=== PATIENT | female | born 2000 | race African-American/Black ===

== ENCOUNTER 2020-01-14 03:20 | Emergency (ER) | payer MEDICAID, SELFPAY ==
[2020-01-14 03:23] VITALS: BP 143/74; PULSE 83; RESP 18; TEMP 36.1; O2SAT 99; BMI 28.1
[2020-01-14 04:00] VITALS: PULSE 80; RESP 18; O2SAT 100
--- NOTE | 2020-01-14 04:04 | US_ITS ---
EXAMINATION: US OBSTETRICAL CLINICAL INFORMATION: Cramping. . COMPARISON: None TECHNIQUE: Real-time ultrasound was performed transabdominally and transvaginally. FINDINGS: The uterus is anteverted in position. Within the endometrial cavity is a well formed gestation sac measuring 0.93 cm in diameter. This yields a gestational age of 5 weeks 4 days. A yolk sac is present. There is no pole visualized. Both ovaries are seen. The right ovary measures 3.8 x 2.3 x 2.6 cm. The left ovary measures 3.8 x 3.3 x 3.3 cm. Dominant follicle measuring 2.4 cm noted. Other significant findings: Moderate amount of free fluid in the pelvis/right adnexa. US/US OB transvaginal IMPRESSION: Intrauterine gestational sac with yolk sac present. No pole seen, possibly secondary to the early stage of . Continued close follow-up recommended.
--- NOTE | 2020-01-14 04:04 | US_ITS ---
EXAMINATION: US OBSTETRICAL CLINICAL INFORMATION: Cramping. . COMPARISON: None TECHNIQUE: Real-time ultrasound was performed transabdominally and transvaginally. FINDINGS: The uterus is anteverted in position. Within the endometrial cavity is a well formed gestation sac measuring 0.93 cm in diameter. This yields a gestational age of 5 weeks 4 days. A yolk sac is present. There is no pole visualized. Both ovaries are seen. The right ovary measures 3.8 x 2.3 x 2.6 cm. The left ovary measures 3.8 x 3.3 x 3.3 cm. Dominant follicle measuring 2.4 cm noted. Other significant findings: Moderate amount of free fluid in the pelvis/right adnexa. US/US OB <= 14 weeks fetus IMPRESSION: Intrauterine gestational sac with yolk sac present. No pole seen, possibly secondary to the early stage of . Continued close follow-up recommended.
[2020-01-14 04:07] LABS: MANUAL DIFF FLAG NO
[2020-01-14 04:08] LABS: Basophils Percent Auto 0.4 % (0-2); Eosinophils Absolute Auto 0.1 X10*3/uL (0.0-0.4); Eosinophils Percent Auto 1.6 % (0-4); Hematocrit 37.1 % (37-47); Hemoglobin 12.3 g/dl (12.0-16.0); Imm Gran Abs Auto 0.03 X10*3/uL (0.00-0.03); Imm Gran Pct Auto 0.4 % (0.0-0.4); Lymphocytes Absolute Auto 2.9 X10*3/uL (1.2-4.9); Lymphocytes Percent Auto 35.1 % (20-40); Mean Corpuscular HGB Conc 33.2 g/dl (31.0-35.0); Mean Corpuscular Hemoglobin 29.3 pg (27.0-33.0); Mean Corpuscular Volume 88.3 fL (80-98); Mean Platelet Volume 9.7 fL (9.4-12.3); Monocytes Absolute Auto 0.8 X10*3/uL (0.1-1.2); Neutrophils Absolute Auto 4.5 X10*3/uL (2.0-8.3); Neutrophils Percent Auto 53.5 % (45-73); Platelet Count 289 X10*3/uL (160-400); Red Cell Distribution Width 12.7 % (11.0-16.0); White Blood Count 8.3 X10*3/uL (4.8-10.8)
[2020-01-14 04:09] LABS: Glucose Urine UA NEG (NEG); Leukocyte Esterase Urine NEG (NEG); Nitrite Urine NEG (NEG); Specific Gravity - Urine >= 1.030 (1.005-1.025); Urine Blood NEG (NEG); Urine Ketones NEG (NEG); Urine Protein NEG (NEG-TRACE)
[2020-01-14 04:12] LABS: Appearance Urine HAZY; Color Urine YELLOW; UACC Culture Trigger NO; UPreg QC Valid YES; Urine Pregnancy POSITIVE (NEGATIVE)
[2020-01-14 04:28] LABS: Alanine Aminotransferase 7 U/L (0-31); Albumin Level 4.3 g/dL (3.5-5.0); Alkaline Phosphatase 63 U/L (39-117); Anion Gap 11 (12-20); Aspartate Amino Transferase 13 U/L (5-31); Bilirubin Total 0.4 mg/dL (0.0-1.0); Blood Urea Nitrogen 13 mg/dL (9-16); Calcium 9.3 mg/dL (8.4-10.2); Carbon Dioxide 25 mmol/L (22-29); Chloride 104 mmol/L (96-108); Creatinine Clr Calc Pharmacy 105.2; Estimated Glomerular Filt Rate > 60; Glucose Random 75 mg/dL (60-115); Potassium 3.6 mmol/l (3.3-5.1); Sodium 136 mmol/L (135-145); Total Protein 7.4 g/dL (6.5-8.0)
[2020-01-14 04:34] LABS: HCG Quantitative 10368 mIU/mL
--- NOTE | 2020-01-14 04:52 | ED.ABDPAIN ---
HPI - Abdominal Pain General Chief Complaint: Abdominal Pain Stated Complaint: Abd cramping/? Time Seen by Provider: 01/14/20 03:32 Source: patient Mode of arrival: ambulatory Limitations: no limitations History of Present Illness HPI narrative: This is a 19-year-old female who presents with complaints of left upper quadrant cramping that she states radiates into her back but has not been associated with any urinary pain / burning /frequency, fevers, chills, nausea, vomiting, or diarrhea. In addition, patient complains cramping in the left lower pelvis / LLQ and endorses that she was diagnosed with approximately 1 month ago. She is concerned that she may be experiencing a miscarriage but denies any vaginal discharge or bleeding at this time. She does state that she has not had a bowel movement in 4 days. Related Data Allergies Allergy/AdvReac Type Severity Reaction Status Date / Time No Known Allergies Allergy Unverified 11/02/19 17:25 Review of Systems Review of Systems Pertinent positives and negatives as stated in HPI 10 point review of systems is otherwise negative. Physical Exam Vital Signs: Vital Signs: Last Vital Signs Temp 97 F 01/14/20 03:23 Pulse 80 01/14/20 04:00 Resp 18 01/14/20 04:00 BP 143/74 H 01/14/20 03:23 Pulse Ox 100 01/14/20 04:00 Body Mass Index 28.1 VITAL SIGNS: Reviewed. GENERAL: Well developed, well nourished, in no acute distress. HEAD: Normocephalic/atraumatic, EYES: PERRLA, EOMI intact without pain, no nystagmus/pallor/icterus noted EARS: Ext canals without abnormality, TMs non-bulging and non-erythematous NOSE: Nares patent bilateral OROPHARYNX: no oral lesions noted, posterior pharynx clear and non-erythematous without noted tonsillar enlargement/erythema/exudates NECK: Supple, no adenopathy LUNGS: Normal breath sounds. No adventitious sounds or accessory muscle use. SpO2<100> CARDIOVASCULAR: Regular rate and rhythm without noted murmurs, no JVD or lower extremity edema. ABDOMEN: Soft, Mild tenderness on palpation at the left lower quadrant without CVA tenderness and no rebound., non-distended with bowel sounds. No rigidity. No guarding. No palpable masses or hernias noted MUSCULOSKELETAL: No tenderness, deformities, or effusions noted on gross inspection. EXTREMITIES: No cyanosis, clubbing or edema. SKIN: Inspection of the skin reveals no rashes, ulcerations, jaundice, pallor, or petechiae. NEUROLOGIC: Alert and oriented x 4. Strength and sensation to light touch were grossly intact x 4. Course Course Course Narrative: This is a 19-year-old female with history and clinical presentation most consistent with constipation or cystitis or renal colic but will need to rule out ectopic and doubt diverticulitis. On review of all investigations there are no acute laboratory her urinalysis findings and the urine test is positive with a concomitant beta hCG of 10,368. Ob ultrasound demonstrates a gestational sac with yolk sac but no pole and current estimation is 5 weeks and 4 days without evidence to suggest ectopic but there is a noted moderate amount of free fluid in the pelvis. This was discussed with Dr Avalos who recommends follow-up ultrasound in 2 weeks. all these results and findings were discussed with the patient at bedside. MDM - Abdominal Pain Lab Data Result diagrams: 01/14/20 04:00 01/14/20 04:00 Labs: Lab Results 01/14/20 01/14/20 01/14/20 Range/Units 04:00 04:00 04:00 WBC 8.3 (4.8-10.8) X10*3/uL RBC 4.20 (4.20-5.50) X10*6/uL Hgb 12.3 (12.0-16.0) g/dl Hct 37.1 (37-47) % MCV 88.3 (80-98) fL MCH 29.3 (27.0-33.0) pg MCHC 33.2 (31.0-35.0) g/dl RDW 12.7 (11.0-16.0) % Plt Count 289 (160-400) X10*3/uL MPV 9.7 (9.4-12.3) fL Immature Gran % (Auto) 0.4 (0.0-0.4) % Neut % (Auto) 53.5 (45-73) % Lymph % (Auto) 35.1 (20-40) % Winkler % (Auto) 9.0 (2-11) % Eos % (Auto) 1.6 (0-4) % Baso % (Auto) 0.4 (0-2) % Lymph # (Auto) 2.9 (1.2-4.9) X10*3/uL Winkler # (Auto) 0.8 (0.1-1.2) X10*3/uL Eos # (Auto) 0.1 (0.0-0.4) X10*3/uL Baso # (Auto) 0.0 (0.0-0.2) X10*3/uL Abs Immat Gran (auto) 0.03 (0.00-0.03) X10*3/uL Absolute Neuts (auto) 4.5 (2.0-8.3) X10*3/uL Absolute Nucleated RBC 0.000 (0.0-0.012) X10*3/uL Nucleated RBC % (auto) 0.0 (0.0-0.2) /100WBC Sodium 136 (135-145) mmol/L Potassium 3.6 (3.3-5.1) mmol/l Chloride 104 (96-108) mmol/L Carbon Dioxide 25 (22-29) mmol/L Anion Gap 11 L (12-20) BUN 13 (9-16) mg/dL Creatinine 0.75 (0.5-1.4) mg/dL Estim Creat Clear Calc 105.2 Estimated GFR > 60 Random Glucose 75 (60-115) mg/dL Calcium 9.3 (8.4-10.2) mg/dL Total Bilirubin 0.4 (0.0-1.0) mg/dL AST 13 (5-31) U/L ALT 7 (0-31) U/L Alkaline Phosphatase 63 (39-117) U/L Total Protein 7.4 (6.5-8.0) g/dL Albumin 4.3 (3.5-5.0) g/dL Beta HCG, Quant 18789 mIU/mL Urine Color YELLOW Urine Appearance HAZY Urine pH 6.0 (5.0-8.0) Ur Specific Tropic >= 1.030 H (1.005-1.025) Urine Protein NEG (NEG-TRACE) MG/DL Urine Glucose (UA) NEG (NEG) MG/DL Urine Ketones NEG (NEG) MG/DL Urine Blood NEG (NEG) Urine Nitrite NEG (NEG) Ur Leukocyte Esterase NEG (NEG) Urine Test POSITIVE H (NEGATIVE) Discharge Plan Discharge Clinical Impression: Free fluid in pelvis Qualifiers: Weeks of gestation: less than 8 weeks Qualified Code(s): Z3A.01 - Less than 8 weeks gestation of Patient Disposition: Home, Self-Care Instructions: First Trimester (ED) Additional Instructions: 1. Tylenol 1000 mg, orally, every 6 hours as needed for pain control. Do not exceed 4000 mg within 24 hours. 2. Increase fluid hydration especially with water and continue with your vitamins. 3. On the ultrasound today you were noted to have a moderate amount of free fluid in the pelvis and you should have a repeat ultrasound in 2 weeks. 4. Ayll-tyg-lgrvctk MiraLax as directed on the outside packaging to assist in regular bowel movements and avoidance of constipation. The patient and/or family acknowledge understanding of results (as applicable), diagnosis, treatment plan, need for follow up, and symptoms that should prompt a return to the emergency room. Referrals: Estephania Balderas, REGULATORY AFFAIRS STRATEGY SPECIALIST [Primary Care Provider] - 2 days ( For re-evaluation in 2 weeks of pelvic free fluid as well as confirmation of pole development) [facility] Past Medical History Source: nursing notes reviewed Medical History Asthma Social History Social History Alcohol intake: never Smoking Status: Unknown if ever smoked Use of substances other than those prescribed or required for medical reasons: Refusing to respond Advance Directives: No Advance Directives Information Provided: No
== END 2020-01-14 06:43 | disposition home or self-care (01) ==
PROVIDERS: Emergency Provider Student in an Organized Health Care Education/Training Program; PCP Nurse Practitioner Primary Care
DX: O26.91 Pregnancy related conditions, unspecified, first trimester (principal); R10.12 Left upper quadrant pain; Z3A.01 Less than 8 weeks gestation of pregnancy
CPT/HCPCS: 36415; 76801; 76817; 80053; 81003; 81025; 84702; 85025; 99284

== ENCOUNTER 2020-01-23 09:04 | Outpatient (REF) | payer MEDICAID, SELFPAY ==
[2020-01-24 14:17] LABS: BV Int Neg Control Negative (Negative); BV Int Pos Control Positive (Positive)
[2020-01-27 04:57] LABS: CT PCR NOT DETECTED (Not Detect.); NG PCR NOT DETECTED (Not Detect.)
== END 2020-01-23 09:05 | disposition home or self-care (01) ==
LOC: HO.LAB 09:04
PROVIDERS: PCP Nurse Practitioner Primary Care; Visit Provider Advanced Practice Midwife
DX: R10.2 Pelvic and perineal pain (principal); K59.00 Constipation, unspecified; Z34.90 Encounter for supervision of normal pregnancy, unspecified, unspecified trimester
CPT/HCPCS: 87480; 87491; 87510; 87591; 87660; 99202

== ENCOUNTER 2020-01-23 10:37 | Outpatient (REF) | payer MEDICAID, SELFPAY ==
--- NOTE | 2020-01-23 10:41 | US_ITS ---
EXAMINATION: FIRST TRIMESTER OB ULTRASOUND CLINICAL INFORMATION: Abdominal cramping COMPARISON: Previous exam 01/14/2020 TECHNIQUE: Transabdominal first trimester OB ultrasound FINDINGS: The uterus is normal in size and shape. There is an intrauterine gestational sac. Lynd-rump length measures 0.64 cm suggesting gestational age of 6 weeks 4 days with estimated date of delivery of 09/13/2020. heart rate is 122 bpm. There is a yolk sac. The right maternal ovary is not seen. The left maternal ovary is slightly enlarged and measures 5 x 3.6 x 3.2 cm. There is a 2.5 x 1.7 x 2.6 cm left ovarian cyst. There is no fluid in the pelvis. US/US OB <= 14 weeks fetus IMPRESSION: Single viable intrauterine . From today's measurements, gestational age is estimated at 6 weeks 4 days with estimated date of delivery of 09/13/2020. Slightly enlarged left ovary and 2.5 x 1.7 x 2.6 cm left ovarian cyst.
== END 2020-01-23 10:38 | disposition home or self-care (01) ==
LOC: HO.US 10:37
PROVIDERS: Visit Provider Advanced Practice Midwife
DX: R10.2 Pelvic and perineal pain (principal); Z34.90 Encounter for supervision of normal pregnancy, unspecified, unspecified trimester
CPT/HCPCS: 76801

== ENCOUNTER 2020-01-30 13:49 | Outpatient (REF) | payer MEDICAID, SELFPAY ==
--- NOTE | 2020-01-30 13:55 | US_ITS ---
EXAMINATION: US DIAGNOSTIC ULTRASOUND BREAST, LEFT CLINICAL INFORMATION: 19-year-old with outside area of palpable concern upper outer left breast. First trimester . Family history breast cancer in grandmother. No prior breast imaging. COMPARISON: None. TECHNIQUE: Ultrasound left breast is targeted to the area of clinical concern. Patient is able to point to the area of concern at time of imaging. Grayscale imaging and color Doppler are performed without and with harmonics. FINDINGS: There is no focal suspicious finding. There is no cystic or solid mass, architectural abnormality, duct ectasia, or edema in the soft tissue planes. Results are discussed with the patient at time of visit. US/US breast LT limited IMPRESSION: Unremarkable exam. No ultrasound correlate for patient's clinical concern. ASSESSMENT: BI-RADS 1: Negative RECOMMENDATION: Patient should be managed based on the clinical impression. If clinically indicated, further evaluation may be considered with surgical consult. Decision to proceed with biopsy should be based on clinical grounds and degree of clinical concern.
== END 2020-01-30 13:50 | disposition home or self-care (01) ==
LOC: HO.MAMMO 13:49
PROVIDERS: PCP Nurse Practitioner Primary Care; Visit Provider Nurse Practitioner Primary Care
DX: N63.21 Unspecified lump in the left breast, upper outer quadrant (principal); N64.4 Mastodynia
CPT/HCPCS: 76642

== ENCOUNTER → 2020-02-12 14:12 | Outpatient (BNVA) | payer MEDICAID, SELFPAY | PROVIDERS: PCP Nurse Practitioner Primary Care; Visit Provider Advanced Practice Midwife | DX: O09.291 Supervision of pregnancy with other poor reproductive or obstetric history, first trimester (principal); Z3A.09 9 weeks gestation of pregnancy | CPT/HCPCS: 99212 ==

== ENCOUNTER 2020-02-14 11:43 | Outpatient (REF) | payer MEDICAID, SELFPAY ==
--- NOTE | 2020-02-14 11:48 | US_ITS ---
EXAMINATION: ULTRASOUND OB LESS THAN 14 WEEKS limited. CLINICAL INFORMATION: Follow-up , LMP 12/09/2019. COMPARISON: 11/23/2019. TECHNIQUE: Multiple limited 2-D grayscale and color Doppler ultrasound images of the pelvis were obtained. FINDINGS: A single intrauterine gestation is seen with an average gestational sac is seen. The yolk sac is unremarkable. A pole shows good motion and heart rate. A heart rate is seen measuring 172 beats per minute. 2 small areas of subchorionic hemorrhage are seen measuring 2.2 cm anteriorly and 2.1 cm posteriorly. The cervix is closed unremarkable. There is no free fluid in the cul-de-sac. No adnexal abnormality is identified. The left ovary measures 3.9 x 1.9 x 3.6 . The right ovary measures 3.2 x 2.8 x 2.5 cm. US/US OB <= 14 weeks fetus Impression: IMPRESSION: 1. Single viable intrauterine gestation as detailed above. 2. 2 small areas of subchorionic hemorrhage were not seen previously. These can be monitored for change as clinically indicated.
== END 2020-02-14 11:44 | disposition home or self-care (01) ==
LOC: HO.HMGCX 11:43
PROVIDERS: PCP Nurse Practitioner Primary Care; Visit Provider Advanced Practice Midwife
DX: O26.891 Other specified pregnancy related conditions, first trimester (principal); N93.9 Abnormal uterine and vaginal bleeding, unspecified
CPT/HCPCS: 76801

== ENCOUNTER 2020-03-01 12:15 | Outpatient (REF) | payer MEDICAID, SELFPAY ==
--- NOTE | 2020-03-01 12:26 | US_ITS ---
EXAMINATION: OBSTETRICAL ULTRASOUND, FIRST TRIMESTER HISTORY: 19-year-old at the 11.6 weeks of gestation NT screening COMPARISON: 02/14/2020 TECHNIQUE: Real time transabdominal imaging with color and M-mode Doppler. FINDINGS: A single, live IUP CRL of 62.3 mm c/w 12.5wks is noted. Heart Rate: 156 beats per minute. Normal yolk sac seen. NT was 1.3.mm. NB Present The embryo appears sonographically wnl for this GA. Left ovary is within normal limits. Right ovary was not visible. GESTATIONAL AGE: 1. Established GA: 11.6 wks 2. GA from [facility]: 12.5 wks ESTIMATED DATE OF DELIVERY: 1. Established NIKITA: 09/13/2020 2. NIKITA from [facility]: 09/08/2020 US/US OB 1T nuc measure IMPRESSION: 1. A single live IUP 2. Size equals dates 3. NT of 1.3 mm MFM Consultation: I reviewed the ultrasound findings along with significance of NT measurement. The NT of less than 3mm is generally reassuring. However, the sensitivity for T21 detection is only 60%. I reviewed the availability of serum aneuploidy screening which includes cell-free DNA and placental protein based tests. I discussed the sensitivity, false-positive rate, and other limitations associated with each test. I also reviewed the availability of invasive diagnostic tests that are associated small but definite risk of miscarriage. We also reviewed the differences between screening tests and diagnostic tests. After our discussion, she opted for the First trimester screening that is based on cell-free DNA or non-invasive testing (NIPT). The result will be faxed to your office in approximately 7 days. A follow up at 18 weeks for survey has been scheduled. Thank you very much for this referral. Majority of this visit was spent reviewing her care and counselling her in face to face time: Time spent 20 min. (3,10,7)
[2020-03-01 15:01] LABS: MANUAL DIFF FLAG NO
[2020-03-01 15:16] LABS: Basophils Percent Auto 0.1 % (0-2); Eosinophils Absolute Auto 0.1 X10*3/uL (0.0-0.4); Eosinophils Percent Auto 0.9 % (0-4); Hemoglobin 11.9 g/dl (12.0-16.0); Imm Gran Abs Auto 0.03 X10*3/uL (0.00-0.03); Imm Gran Pct Auto 0.4 % (0.0-0.4); Lymphocytes Absolute Auto 1.2 X10*3/uL (1.2-4.9); Lymphocytes Percent Auto 18.2 % (20-40); Mean Corpuscular HGB Conc 33.1 g/dl (31.0-35.0); Mean Corpuscular Hemoglobin 29.3 pg (27.0-33.0); Mean Corpuscular Volume 88.7 fL (80-98); Mean Platelet Volume 10.1 fL (9.4-12.3); Monocytes Absolute Auto 0.5 X10*3/uL (0.1-1.2); Monocytes Percent Auto 6.6 % (2-11); Neutrophils Percent Auto 73.8 % (45-73); Platelet Count 264 X10*3/uL (160-400); Red Blood Count 4.06 X10*6/uL (4.20-5.50); Red Cell Distribution Width 12.3 % (11.0-16.0); White Blood Count 6.8 X10*3/uL (4.8-10.8)
[2020-03-01 15:26] LABS: Amphetamine Screen Urine Not Detected (Not Detect); Barbiturates, Urine Not Detected (Not Detect); Benzodiazepines Screen Urine Not Detected (Not Detect); Cannabinoid Screen Urine Not Detected (Not Detect); Cocaine Screen Urine Not Detected (Not Detect); Opiate Screen Urine Not Detected (Not Detect); Phencyclidine Screen Urine Not Detected (Not Detect)
[2020-03-01 16:00] LABS: Syphilis Screen Nonreactive (Nonreactive)
[2020-03-03 02:33] LABS: Rubella IgG Antibody 2.37 Index; Varicella IgG Antibody <135.00 index
[2020-03-04 08:20] LABS: HBsAGNum1 0.45 S/CO (0.00-0.99); HIV AB/AG Nonreactive (Nonreactive); HIV Num 1 0.06 S/CO (0.00-0.99); Hepatitis B Surface Antigen Negative (Negative)
[2020-03-04 09:05] LABS: ~HepC Num1 0.08 S/CO (0.00-0.79); ~Hepatitis C Antibody Nonreactive (Nonreactive)
== END 2020-03-01 12:16 | disposition home or self-care (01) ==
LOC: HO.US 12:15
PROVIDERS: Absent Provider Advanced Practice Midwife; PCP Nurse Practitioner Primary Care; Visit Provider Advanced Practice Midwife
DX: O26.891 Other specified pregnancy related conditions, first trimester (principal); Z36.82 Encounter for antenatal screening for nuchal translucency; Z3A.11 11 weeks gestation of pregnancy
CPT/HCPCS: 76813; 80307; 84702; 85025; 86762; 86780; 86787; 86803; 86850; 86900; 86901; 87086; 87340; 87389

== ENCOUNTER 2020-03-08 07:32 | Emergency (ER) | payer MEDICAID, SELFPAY ==
[2020-03-08 07:59] VITALS: BP 116/71; PULSE 74; RESP 16; TEMP 37.1; O2SAT 99; BMI 29.6
[2020-03-08 08:11] VITALS: BP 116/71; PULSE 74; RESP 16; TEMP 37.1; O2SAT 99
--- NOTE | 2020-03-08 08:11 | ECG_ITS ---
Test Reason : SYNCOPE Blood Pressure : / mmHG Vent. Rate : 061 BPM Atrial Rate : 061 BPM P-R Int : 164 ms QRS Dur : 072 ms QT Int : 384 ms P-R-T Axes : 032 051 031 degrees QTc Int : 386 ms Normal sinus rhythm Normal ECG When compared with ECG of 28-NOV-2017 13:36, No significant change was found Referred By: Esteban Acosta Electronically Signed By:Rj Reynolds
--- NOTE | 2020-03-08 08:25 | ED_ITS ---
HPI - Syncope General Chief Complaint: Dizziness Stated Complaint: PASSED OUT YESTERDAY - PREG Time Seen by Provider: 03/08/20 08:02 Source: patient Mode of arrival: ambulatory History of Present Illness HPI narrative: 19 yo F with a past medical history of asthma, at 12 weeks gestation presenting to the ED c/o chest tightness x1 week, migraine headache x few days, and multiple syncopal episodes yesterday while on computer. States was sitting at computer and felt herself going out and coming back in without falling to ground or losing postural tone. Denies head trauma. Admits to assoc SOB. Admits to nausea/vomiting since . Reports headache is similar to prior migraines, not maximal onset, waxes and wanes, and has not taken Tylenol in a few days. Denies fever, chills, cough, visual changes, abdominal pain, diarrhea, vaginal bleeding or discharge. Related Data Home Medications Medication Instructions Recorded Confirmed prenat.vits,connie,[id number] 1 tab PO BEDTIME 01/23/20 02/12/20 Previous Rx's Medication Instructions Recorded miconazole nitrate 2 % vaginal 1 appful VAGINAL BEDTIME 7 Days 01/26/20 cream #45 g Allergies Allergy/AdvReac Type Severity Reaction Status Date / Time No Known Allergies Allergy Unverified 02/12/20 14:18 Review of Systems Review of Systems: Constitutional: No Weight loss, No Fever, No Chills ENT/Mouth: No Hoarseness, No sore throat, No Swallowing Difficulty Eyes: No Eye Pain, No Vision Changes Cardiovascular: + Chest Pain, +SOB, No Dyspnea on Exertion, No Palpitations Respiratory: No Cough, No Sputum, No Dyspnea Gastrointestinal: + Nausea, + Vomiting, No Diarrhea, No Constipation, No Abdominal pain Genitourinary: No irregular bleeding, No Dysuria, No Urinary Frequency, No Hematuria Musculoskeletal: No joint pain, No Myalgias, No Joint Swelling Skin: No Skin Lesions, No rash Neuro: No Weakness, No Numbness, No Paresthesias, + Loss of Consciousness, +lightheadedness, + Headache Yes all other systems are reviewed and are negative Neurologic: Denies Abnormal speech present PMFSH Past Medical History Attestation statement: The following information was validated with the patient. Source: old records reviewed and nursing notes reviewed Medical History Asthma Family History Family History (Updated 02/12/20 @ 14:23 by Ananya Elena RN) Father No problems noted. Mother History of brain tumor Hx of acute arthritis Maternal Grandmother History of asthma Hx of acute arthritis Hx of diabetes mellitus Hx of kidney disease Maternal Grandfather No problems noted. Paternal Grandfather No problems noted. Paternal Grandmother Hx of breast cancer Social History Social History (Updated 02/12/20 @ 14:25 by Ananya Elena, RN) Household Members: Significant Other Alcohol intake: never Smoking Status: Never smoker Smoked in Last 30 Days: No Use of substances other than those prescribed or required for medical reasons: No Advance Directives: No Advance Directives Information Provided: No service: No Current occupational status: employed Current occupation: Works at school Current occupational exposures/hazards: No Physical Exam Vital Signs: Vital Signs: Last Vital Signs Temp 98.7 F 03/08/20 08:11 Pulse 76 03/08/20 09:16 Resp 16 03/08/20 08:11 BP 125/68 03/08/20 09:16 Pulse Ox 99 03/08/20 08:11 Body Mass Index 29.6 Const: General: cooperative, healthy appearing, comfortable and no acute distress Orientation/consciousness: patient oriented x3 Limitations: no limitations HENMT: Head: Yes normal to inspection Ears: hearing grossly normal bilaterally General nose exam: Normal external nose present Face and sinus: Yes normal facial exam Throat: Yes posterior oropharynx normal and Yes uvula midline Eyes: General: appearance normal, both eyes and all related structures Pupils: Equal, round and reactive pupils present EOM: EOMs intact bilaterally Neck: Neck: Yes normal visual inspection and Yes no meningeal signs Resp: Effort & Inspection: normal respiratory effort Auscultation: clear to auscultation bilaterally, no rales, no rhonchi and no wheezes Cardio: Rate: regular rate Heart sounds: S1 normal heart sound present and S2 normal heart sound present GI: Inspection: Yes normal to inspection Palpation (GI): Soft to palpation, nontender, no guarding and not rigid Skin: Rashes: no rashes Wounds: no wounds Neuro: General: patient oriented x3, tone normal, moves all extremities, no meningeal signs, no focal motor deficits and CN's II-XI intact bilaterally Cranial nerves: Yes Equal, round and reactive pupils present Cognition (Neuro): normal cognition Speech: No Abnormal speech present Gait exam (Neuro): Normal gait present Motor exam (neuro): 5/5 motor strength present throughout and Pronator motor function not present Coordination: [id number] test normal Extrem: General: Yes normal to inspection Course Course Course Narrative: * H&H at baseline, no leukocytosis, D-dimer negative negative, labs otherwise unremarkable. Beta quant 123,905 * CXR unremarkable, orthostatic vital signs negative * UA and drug screen negative. Patient reports symptomatic improvement in the ED. Results discussed with patient including worrisome signs and symptoms and strict return precautions. Patient is to have close follow-up with her OBGYN. She verbalized understanding of feel safe for discharge home MDM - Syncope MDM Narrative Medical decision making narrative: 19 yo F with a past medical history of asthma, at 12 weeks gestation presenting to the ED c/o chest tightness x1 week, migraine headache x few days, and multiple syncopal episodes yesterday while on computer. On exam VSS, NAD/nontoxic appearing, no focal neuro deficit s, lungs CTA, abdomen soft/nontender. Concern for complicated migraine headache vs ACS or PE vs dehydration. Lower concern for pneumonia, CVT, meningitis/encephalitis. Plan: EKG, labs, UA, orthostatics, IVF, re-evaluate Medical Records Attestation: I reviewed the patient's medical records. Lab Data Attestation: I reviewed the patient's lab results. Result diagrams: 03/08/20 08:37 03/08/20 08:37 Labs: Lab Results 03/08/20 03/08/20 03/08/20 Range/Units 08:37 08:37 08:37 WBC 6.8 (4.8-10.8) X10*3/uL RBC 3.86 L (4.20-5.50) X10*6/uL Hgb 11.6 L (12.0-16.0) g/dl Hct 34.2 L (37-47) % MCV 88.6 (80-98) fL MCH 30.1 (27.0-33.0) pg MCHC 33.9 (31.0-35.0) g/dl RDW 12.6 (11.0-16.0) % Plt Count 240 (160-400) X10*3/uL MPV 9.7 (9.4-12.3) fL Immature Gran % (Auto) 0.4 (0.0-0.4) % Neut % (Auto) 65.8 (45-73) % Lymph % (Auto) 25.8 (20-40) % [place] % (Auto) 6.9 (2-11) % Eos % (Auto) 1.0 (0-4) % Baso % (Auto) 0.1 (0-2) % Lymph # (Auto) 1.8 (1.2-4.9) X10*3/uL [place] # (Auto) 0.5 (0.1-1.2) X10*3/uL Eos # (Auto) 0.1 (0.0-0.4) X10*3/uL Baso # (Auto) 0.0 (0.0-0.2) X10*3/uL Abs Immat Gran (auto) 0.03 (0.00-0.03) X10*3/uL Absolute Neuts (auto) 4.5 (2.0-8.3) X10*3/uL Absolute Nucleated RBC 0.000 (0.0-0.012) X10*3/uL Nucleated RBC % (auto) 0.0 (0.0-0.2) /100WBC PT 12.7 (10.8-13.0) SEC INR 1.1 (0.9-1.1) APTT 33.0 (24.1-38.0) SEC D-Dimer < 200 NG/ML Sodium 134 L (135-145) mmol/L Potassium 3.7 (3.3-5.1) mmol/l Chloride 104 (96-108) mmol/L Carbon Dioxide 23 (22-29) mmol/L Anion Gap 11 L (12-20) BUN 10 (9-16) mg/dL Creatinine 0.62 (0.5-1.4) mg/dL Estim Creat Clear Calc 130.6 Estimated GFR > 60 Random Glucose 70 (60-115) mg/dL Calcium 9.0 (8.4-10.2) mg/dL Magnesium 1.8 (1.6-2.6) mg/dL Total Bilirubin 0.2 (0.0-1.0) mg/dL Direct Bilirubin < 0.2 (0.0-0.5) mg/dL AST 12 (5-31) U/L ALT 6 (0-31) U/L Alkaline Phosphatase 48 D (39-117) U/L Troponin I High Sens (<3.5-17.0) ng/L B-Natriuretic Peptide (<100) pg/mL Total Protein 6.7 (6.5-8.0) g/dL Albumin 3.9 (3.5-5.0) g/dL Beta HCG, Quant 513990 mIU/mL Urine Color Urine Appearance Urine pH (5.0-8.0) Ur Specific [place] (1.005-1.025) Urine Protein (NEG-TRACE) MG/DL Urine Glucose (UA) (NEG) MG/DL Urine Ketones (NEG) MG/DL Urine Blood (NEG) Urine Nitrite (NEG) Ur Leukocyte Esterase (NEG) Urine Opiates Screen (Not Detect) Ur Barbiturates Screen (Not Detect) Ur Phencyclidine Scrn (Not Detect) Ur Amphetamines Screen (Not Detect) U Benzodiazepines Scrn (Not Detect) Urine Cocaine Screen (Not Detect) U Marijuana (THC) Screen (Not Detect) 03/08/20 03/08/20 03/08/20 Range/Units 08:37 10:05 10:05 WBC (4.8-10.8) X10*3/uL RBC (4.20-5.50) X10*6/uL Hgb (12.0-16.0) g/dl Hct (37-47) % MCV (80-98) fL MCH (27.0-33.0) pg MCHC (31.0-35.0) g/dl RDW (11.0-16.0) % Plt Count (160-400) X10*3/uL MPV (9.4-12.3) fL Immature Gran % (Auto) (0.0-0.4) % Neut % (Auto) (45-73) % Lymph % (Auto) (20-40) % [place] % (Auto) (2-11) % Eos % (Auto) (0-4) % Baso % (Auto) (0-2) % Lymph # (Auto) (1.2-4.9) X10*3/uL [place] # (Auto) (0.1-1.2) X10*3/uL Eos # (Auto) (0.0-0.4) X10*3/uL Baso # (Auto) (0.0-0.2) X10*3/uL Abs Immat Gran (auto) (0.00-0.03) X10*3/uL Absolute Neuts (auto) (2.0-8.3) X10*3/uL Absolute Nucleated RBC (0.0-0.012) X10*3/uL Nucleated RBC % (auto) (0.0-0.2) /100WBC PT (10.8-13.0) SEC INR (0.9-1.1) APTT (24.1-38.0) SEC D-Dimer NG/ML Sodium (135-145) mmol/L Potassium (3.3-5.1) mmol/l Chloride (96-108) mmol/L Carbon Dioxide (22-29) mmol/L Anion Gap (12-20) BUN (9-16) mg/dL Creatinine (0.5-1.4) mg/dL Estim Creat Clear Calc Estimated GFR Random Glucose (60-115) mg/dL Calcium (8.4-10.2) mg/dL Magnesium (1.6-2.6) mg/dL Total Bilirubin (0.0-1.0) mg/dL Direct Bilirubin (0.0-0.5) mg/dL AST (5-31) U/L ALT (0-31) U/L Alkaline Phosphatase (39-117) U/L Troponin I High Sens < 3.5 (<3.5-17.0) ng/L B-Natriuretic Peptide < 10 (<100) pg/mL Total Protein (6.5-8.0) g/dL Albumin (3.5-5.0) g/dL Beta HCG, Quant mIU/mL Urine Color YELLOW Urine Appearance HAZY Urine pH 6.0 (5.0-8.0) Ur Specific [place] >= 1.030 H (1.005-1.025) Urine Protein NEG (NEG-TRACE) MG/DL Urine Glucose (UA) NEG (NEG) MG/DL Urine Ketones 5 (NEG) MG/DL Urine Blood NEG (NEG) Urine Nitrite NEG (NEG) Ur Leukocyte Esterase NEG (NEG) Urine Opiates Screen Not Detected (Not Detect) Ur Barbiturates Screen Not Detected (Not Detect) Ur Phencyclidine Scrn Not Detected (Not Detect) Ur Amphetamines Screen Not Detected (Not Detect) U Benzodiazepines Scrn Not Detected (Not Detect) Urine Cocaine Screen Not Detected (Not Detect) U Marijuana (THC) Screen Not Detected (Not Detect) ECG Data Attestation: I personally reviewed and interpreted this ECG as follows: ECG interpretation date: 03/08/20 Interpretation: EKG normal sinus rhythm with a rate of 61. No ischemic changes. No STEMI Discharge Plan Discharge Clinical Impression: Chest tightness Syncope Qualifiers: Syncope type: unspecified Qualified Code(s): R55 - Syncope and collapse Patient Disposition: Home, Self-Care Instructions: Chest Pain (ED) Additional Instructions: Your blood work and chest x-ray were reassuring today in the emergency department Make sure your staying hydrated. Call your OBGYN for close follow-up If her symptoms persist or worsen, he develop constant worsening chest pain, shortness of breath, abdominal pain, vaginal bleeding or discharge, or pass out again return to the ED immediately Prescriptions: No Action miconazole nitrate [Monistat 7] 2 % cream 1 appful vaginal BEDTIME 7 Days Qty: 45 RF: 0 prenat.vits,connie,[id number] Tablet 1 tab PO BEDTIME RF: 0 Referrals: Eb Avalos MD [Physician] - 2 days
--- NOTE | 2020-03-08 08:39 | XR_ITS ---
EXAMINATION: XR CHEST CLINICAL INFORMATION: Chest pain. COMPARISON: 06/23/2012 portable chest. TECHNIQUE: Frontal view of the chest was obtained. FINDINGS: No significant abnormality is noted involving the heart, lungs, mediastinum, bony thorax or soft tissues. XR/XR chest 1V IMPRESSION: No acute cardiopulmonary process.
[2020-03-08 08:42] LABS: MANUAL DIFF FLAG NO
[2020-03-08 08:45] LABS: Basophils Percent Auto 0.1 % (0-2); Eosinophils Absolute Auto 0.1 X10*3/uL (0.0-0.4); Hematocrit 34.2 % (37-47); Hemoglobin 11.6 g/dl (12.0-16.0); Imm Gran Abs Auto 0.03 X10*3/uL (0.00-0.03); Imm Gran Pct Auto 0.4 % (0.0-0.4); Lymphocytes Absolute Auto 1.8 X10*3/uL (1.2-4.9); Lymphocytes Percent Auto 25.8 % (20-40); Mean Corpuscular HGB Conc 33.9 g/dl (31.0-35.0); Mean Corpuscular Hemoglobin 30.1 pg (27.0-33.0); Mean Corpuscular Volume 88.6 fL (80-98); Mean Platelet Volume 9.7 fL (9.4-12.3); Monocytes Absolute Auto 0.5 X10*3/uL (0.1-1.2); Monocytes Percent Auto 6.9 % (2-11); Neutrophils Absolute Auto 4.5 X10*3/uL (2.0-8.3); Neutrophils Percent Auto 65.8 % (45-73); Platelet Count 240 X10*3/uL (160-400); Red Blood Count 3.86 X10*6/uL (4.20-5.50); Red Cell Distribution Width 12.6 % (11.0-16.0); White Blood Count 6.8 X10*3/uL (4.8-10.8)
[2020-03-08 08:50] LABS: INTERNATIONAL NORM RATIO 1.1 (0.9-1.1); Prothrombin Time 12.7 SEC (10.8-13.0)
[2020-03-08] MEDS: 0.9 % Sodium Chloride 1,000 ML 999 ML IVCONT (08:54)
[2020-03-08 08:59] LABS: D Dimer < 200 NG/ML
[2020-03-08 09:08] LABS: Alanine Aminotransferase 6 U/L (0-31); Albumin Level 3.9 g/dL (3.5-5.0); Alkaline Phosphatase 48 U/L (39-117); Anion Gap 11 (12-20); Aspartate Amino Transferase 12 U/L (5-31); Bilirubin Direct < 0.2 mg/dL (0.0-0.5); Bilirubin Total 0.2 mg/dL (0.0-1.0); Blood Urea Nitrogen 10 mg/dL (9-16); Carbon Dioxide 23 mmol/L (22-29); Chloride 104 mmol/L (96-108); Creatinine Clr Calc Pharmacy 130.6; Estimated Glomerular Filt Rate > 60; Glucose Random 70 mg/dL (60-115); Magnesium 1.8 mg/dL (1.6-2.6); Potassium 3.7 mmol/l (3.3-5.1); Sodium 134 mmol/L (135-145); Total Protein 6.7 g/dL (6.5-8.0)
[2020-03-08] MEDS: Acetaminophen 325 MG TABLET 650 MG PO (09:08)
[2020-03-08 09:14] VITALS: BP 112/59; PULSE 66
[2020-03-08 09:15] VITALS: BP 115/76; PULSE 72
[2020-03-08 09:15] LABS: B Type Natriuretic Peptide < 10 pg/mL (<100); Troponin-I High Sensitivity < 3.5 ng/L (<3.5-17.0)
[2020-03-08 09:16] VITALS: BP 125/68; PULSE 76
--- NOTE | 2020-03-08 09:21 | PC.NURSE ---
pt states she had a syncopal episode yesterday. No signs or SX of stoke. She is alert, oriented. Tongue midline. speech clear. Pt has no limb drift or ataxia. Gait is steady. Swallow screen completed, pt has no stroke SX.
[2020-03-08 10:15] LABS: Appearance Urine HAZY; Color Urine YELLOW; Glucose Urine UA NEG (NEG); Leukocyte Esterase Urine NEG (NEG); Nitrite Urine NEG (NEG); Specific Gravity - Urine >= 1.030 (1.005-1.025); Urine Blood NEG (NEG); Urine Ketones 5 MG/DL (NEG); Urine Protein NEG (NEG-TRACE)
[2020-03-08 10:36] LABS: Amphetamine Screen Urine Not Detected (Not Detect); Barbiturates, Urine Not Detected (Not Detect); Benzodiazepines Screen Urine Not Detected (Not Detect); Cannabinoid Screen Urine Not Detected (Not Detect); Cocaine Screen Urine Not Detected (Not Detect); Opiate Screen Urine Not Detected (Not Detect); Phencyclidine Screen Urine Not Detected (Not Detect)
[2020-03-08 11:10] VITALS: BP 108/60; PULSE 70; RESP 15; TEMP 37.1; O2SAT 99
== END 2020-03-08 11:23 | disposition home or self-care (01) ==
PROVIDERS: Physician Assistant; Emergency Provider Internal Medicine; PCP Nurse Practitioner Primary Care
DX: O26.891 Other specified pregnancy related conditions, first trimester (principal); R07.9 Chest pain, unspecified; R55 Syncope and collapse; Z3A.12 12 weeks gestation of pregnancy
CPT/HCPCS: 36415; 71045; 80048; 80076; 80307; 81003; 83735; 83880; 84484; 84702; 85025; 85379; 85610; 85730; 93005; 96360; 99284; 99285

== ENCOUNTER 2020-03-11 14:44 | Outpatient (REF) | payer MEDICAID, SELFPAY ==
[2020-03-12 08:53] LABS: BV Int Neg Control Negative (Negative); BV Int Pos Control Positive (Positive)
[2020-03-13 19:02] LABS: C. trachomatis RNA TMA NOT DETECTED (NOT DETECTED); N. gonorrhoeae RNA TMA NOT DETECTED (NOT DETECTED)
== END 2020-03-11 14:45 | disposition home or self-care (01) ==
LOC: HO.LAB 14:44
PROVIDERS: PCP Nurse Practitioner Primary Care; Visit Provider Advanced Practice Midwife
DX: O26.91 Pregnancy related conditions, unspecified, first trimester (principal); N89.8 Other specified noninflammatory disorders of vagina; Z3A.00 Weeks of gestation of pregnancy not specified
CPT/HCPCS: 36415; 81003; 87480; 87491; 87510; 87591; 87660; 99212

== ENCOUNTER → 2020-03-15 08:29 | Outpatient (BNVA) | payer MEDICAID, SELFPAY | PROVIDERS: PCP Nurse Practitioner Primary Care; Visit Provider Advanced Practice Midwife | DX: Z34.90 Encounter for supervision of normal pregnancy, unspecified, unspecified trimester (principal) | CPT/HCPCS: 81003; 99212 ==

== ENCOUNTER 2020-03-28 13:51 | Emergency (ER) | payer MEDICAID, SELFPAY ==
--- NOTE | ~2020-03-28 | US_ITS ---
EXAMINATION: US VENOUS ULTRASOUND WITH DOPPLER LOWER EXTREMITY, BILATERAL CLINICAL INFORMATION: Elevated d-dimer, shortness of breath and chest pain. patient. COMPARISON: None TECHNIQUE: Ultrasound of the deep veins is performed from the hip to the calf with compression sonography and color and pulse Doppler assessment. Spectral analysis with color-flow imaging is performed. FINDINGS: RIGHT: There is normal venous compression and respiratory variation and augmented flow. The visualized common femoral vein, superficial femoral vein, profunda femoral vein, popliteal vein, and the trifurcation region shows no evidence of deep venous thrombosis. There is no popliteal cyst. LEFT: There is normal venous compression and respiratory variation and augmented flow. The visualized common femoral vein, superficial femoral vein, profunda femoral vein, popliteal vein, and the trifurcation region shows no evidence of deep venous thrombosis. There is no popliteal cyst. If the patient's symptoms persist, followup ultrasound in 5 days 7 days might be of value to exclude proximal propagation from a non-visualized calf vein. US/US venous duplex LE BI IMPRESSION: No evidence for deep venous thrombosis in the visualized veins of the bilateral lower extremities.
--- NOTE | ~2020-03-28 | XR_ITS ---
EXAMINATION: XR CHEST CLINICAL INFORMATION: Shortness of breath, right chest pain COMPARISON: Chest radiographs 03/08/2020, 06/23/2012 TECHNIQUE: Portable upright AP view of the chest was obtained. FINDINGS: The lungs are clear. There is no pneumothorax or pleural reaction. No airspace consolidation or groundglass opacity or effusion. The heart is normal in size. The hilar and mediastinal contours and visualized bony structures are unremarkable. XR/XR chest 1V IMPRESSION: Unremarkable examination.
[2020-03-28 14:36] VITALS: BP 129/68; PULSE 82; RESP 20; TEMP 36.7; O2SAT 99; BMI 28.3
--- NOTE | 2020-03-28 15:59 | ECG_ITS ---
Test Reason : CHEST PAIN Blood Pressure : / mmHG Vent. Rate : 074 BPM Atrial Rate : 074 BPM P-R Int : 162 ms QRS Dur : 072 ms QT Int : 388 ms P-R-T Axes : 039 036 024 degrees QTc Int : 430 ms Normal sinus rhythm with sinus arrhythmia Normal ECG When compared with ECG of 08-MAR-2020 08:11, No significant change was found Referred By: Anitha Pandya Electronically Signed By:ELIZABETH MENEZES MD
--- NOTE | 2020-03-28 16:03 | ED.ASTHMA ---
HPI - Asthma General Chief Complaint: Asthma Stated Complaint: sob,chest pain Time Seen by Provider: 03/28/20 15:52 Source: patient Mode of arrival: ambulatory Limitations: no limitations History of Present Illness HPI Narrative: Patient comes to emergency room complaining of right-sided chest pain and shortness of breath. Patient states it started this morning. Patient has history of asthma, used her inhaler twice this morning, no steroids. At this time, patient is complaining shortness of breath, and sharp right-sided chest pain. Patient is at 15 weeks of gestational age. Other than the respiratory issues, patient reports no OB related complications Related Data Home Medications Medication Instructions Recorded Confirmed prenat.vits,connie,[id number] 1 tab PO BEDTIME 01/23/20 03/15/20 Previous Rx's Medication Instructions Recorded miconazole nitrate 2 % vaginal 1 appful VAGINAL BEDTIME 7 Days 01/26/20 cream #45 g miconazole nitrate 2 % vaginal 1 appful VAGINAL BEDTIME 7 Days 03/12/20 cream #45 g prednisone 40 mg PO DAILY #5 tab 03/28/20 Allergies Allergy/AdvReac Type Severity Reaction Status Date / Time No Known Allergies Allergy Verified 03/15/20 08:37 Review of Systems Review of Systems: Constitutional : No Weight loss, No Fever, No Chills, No Night Sweats, No Fatigue, No Malaise ENT/Mouth : No Hearing loss, No Ear Pain, No Nasal Congestion, No Sinus Pain, No Hoarseness, No sore throat, No Rhinorrhea, No Swallowing Difficulty Eyes: No Eye Pain, No Swelling, No Redness, No Foreign Body, No Discharge, No Vision Changes Cardiovascular : Mild right-sided sharp chest pain, No SOB, complaining of shortness of breath, No Edema, No Palpitations Respiratory : No Cough, No Sputum, No Wheezing, No Smoke Exposure, No Dyspnea Gastrointestinal : No Nausea, No Vomiting, No Diarrhea, No Constipation, No abdominal Pain, No Hematochezia, No Melena Genitourinary : no irregular bleeding, No Dysuria, No Urinary Frequency, No Hematuria, No Urinary Incontinence, No Urgency, No Flank Pain, No Urinary Flow Changes, No Hesitancy Musculoskeletal : No joint pain, No Myalgias, No Joint Swelling Skin : No Skin Lesions, No rash Neuro : No Weakness, No Numbness, No Paresthesias, No Loss of Consciousness, No Dizziness, No Headache Psych : No Anxiety/Panic, No Depression, No SI/HI/AH/VH, No Social Issues, Heme/Lymph: No Bruising, No Bleeding,No Lymphadenopathy Endocrine : No Polyuria, No Polydipsia, No Temperature Intolerance [facility] Past Medical History Medical History Asthma PCOS (polycystic ovarian syndrome) Family History Family History (Reviewed 03/15/20 @ 08:38 by Christina Mattson [facility]) Father No problems noted. Mother History of brain tumor Hx of acute arthritis Maternal Grandmother History of asthma Hx of acute arthritis Hx of diabetes mellitus Hx of kidney disease Maternal Grandfather No problems noted. Paternal Grandfather No problems noted. Paternal Grandmother Hx of breast cancer Social History Social History (Reviewed 03/15/20 @ 08:38 by Christina Mattson [facility]) Household Members: Significant Other Alcohol intake: never Smoking Status: Never smoker Advance Directives: No Advance Directives Information Provided: Yes service: No Current occupational status: employed Current occupation: Works at school Current occupational exposures/hazards: No Physical Exam Vital Signs: Vital Signs: Last Vital Signs Temp 98.9 F 03/28/20 20:50 Pulse 74 03/28/20 20:50 Resp 188 H 03/28/20 20:50 BP 107/59 L 03/28/20 20:50 Pulse Ox 100 03/28/20 20:50 Body Mass Index 28.3 Appearance: Alert. Oriented X3. No acute distress. Eyes: Pupils equal, round and reactive to light. ENT: Pharynx normal. Neck: Normal inspection. Neck supple. No lymph nodes noted. No crepitus CVS: Normal heart rate and rhythm. Pulses normal. Normal S1 and S2 Respiratory: No respiratory distress. Breath sounds normal. No Wheezing. No rales Abdomen: Soft and nontender. No rigidity. No distention. good BS x4 Skin: Skin warm and dry. Normal skin color. Normal skin turgor. Extremities: No lower extremity edema. No lower extremity edema. No Lacerations. No Rash Neuro: Oriented X 3. No motor deficit. No sensory deficit. Moving all extermities. No slurred speech. Course Course Course Narrative: On arrival, physical exam is normal. Oxygen saturation 99% on room air, not tachycardic. Patient states that she still feeling ?air hungry?. I discussed with the patient that the plan is to get blood work, chest x-ray, and do a workup for PE. Patient denies any previous history of PE or having family members with history blood disorders Patient remains asymptomatic. No shortness of breath now. Patient's D-dimer slightly elevated (236), likely secondary to being . Ultrasound of the legs negative for DVTs. Patient's heart rate 99, respiratory rate 20, oxygen saturation 100% on room air. Wells PE score: 0 MDM - Asthma Lab Data Result diagrams: 03/28/20 16:35 03/28/20 16:35 Labs: Lab Results 03/28/20 03/28/20 03/28/20 Range/Units 16:35 16:35 16:35 WBC 8.4 (4.8-10.8) X10*3/uL RBC 3.47 L (4.20-5.50) X10*6/uL Hgb 10.5 L (12.0-16.0) g/dl Hct 31.6 L (37-47) % MCV 91.1 (80-98) fL MCH 30.3 (27.0-33.0) pg MCHC 33.2 (31.0-35.0) g/dl RDW 13.2 (11.0-16.0) % Plt Count 216 (160-400) X10*3/uL MPV 9.6 (9.4-12.3) fL Immature Gran % (Auto) 1.0 H (0.0-0.4) % Neut % (Auto) 75.9 H (45-73) % Lymph % (Auto) 15.9 L (20-40) % [place] % (Auto) 6.9 (2-11) % Eos % (Auto) 0.2 (0-4) % Baso % (Auto) 0.1 (0-2) % Lymph # (Auto) 1.3 (1.2-4.9) X10*3/uL [place] # (Auto) 0.6 (0.1-1.2) X10*3/uL Eos # (Auto) 0.0 (0.0-0.4) X10*3/uL Baso # (Auto) 0.0 (0.0-0.2) X10*3/uL Abs Immat Gran (auto) 0.08 H (0.00-0.03) X10*3/uL Absolute Neuts (auto) 6.3 (2.0-8.3) X10*3/uL Absolute Nucleated RBC 0.000 (0.0-0.012) X10*3/uL Nucleated RBC % (auto) 0.0 (0.0-0.2) /100WBC D-Dimer 236 NG/ML Sodium 134 L (135-145) mmol/L Potassium 3.6 (3.3-5.1) mmol/L Chloride 104 (96-108) mmol/L Carbon Dioxide 25 (22-29) mmol/L Anion Gap 9 L (12-20) BUN 6 L (9-16) mg/dL Creatinine 0.59 (0.5-1.4) mg/dL Estim Creat Clear Calc 134.1 Estimated GFR > 60 Random Glucose 73 (60-115) mg/dL Calcium 8.7 (8.4-10.2) mg/dL Total Bilirubin 0.3 (0.0-1.0) mg/dL Direct Bilirubin < 0.2 (0.0-0.5) mg/dL AST 11 (5-31) U/L ALT 7 (0-31) U/L Alkaline Phosphatase 51 (39-117) U/L Troponin I High Sens (<3.5-17.0) ng/L B-Natriuretic Peptide (<100) pg/mL Total Protein 6.4 L (6.5-8.0) g/dL Albumin 3.7 (3.5-5.0) g/dL 03/28/20 Range/Units 16:35 WBC (4.8-10.8) X10*3/uL RBC (4.20-5.50) X10*6/uL Hgb (12.0-16.0) g/dl Hct (37-47) % MCV (80-98) fL MCH (27.0-33.0) pg MCHC (31.0-35.0) g/dl RDW (11.0-16.0) % Plt Count (160-400) X10*3/uL MPV (9.4-12.3) fL Immature Gran % (Auto) (0.0-0.4) % Neut % (Auto) (45-73) % Lymph % (Auto) (20-40) % [place] % (Auto) (2-11) % Eos % (Auto) (0-4) % Baso % (Auto) (0-2) % Lymph # (Auto) (1.2-4.9) X10*3/uL [place] # (Auto) (0.1-1.2) X10*3/uL Eos # (Auto) (0.0-0.4) X10*3/uL Baso # (Auto) (0.0-0.2) X10*3/uL Abs Immat Gran (auto) (0.00-0.03) X10*3/uL Absolute Neuts (auto) (2.0-8.3) X10*3/uL Absolute Nucleated RBC (0.0-0.012) X10*3/uL Nucleated RBC % (auto) (0.0-0.2) /100WBC D-Dimer NG/ML Sodium (135-145) mmol/L Potassium (3.3-5.1) mmol/L Chloride (96-108) mmol/L Carbon Dioxide (22-29) mmol/L Anion Gap (12-20) BUN (9-16) mg/dL Creatinine (0.5-1.4) mg/dL Estim Creat Clear Calc Estimated GFR Random Glucose (60-115) mg/dL Calcium (8.4-10.2) mg/dL Total Bilirubin (0.0-1.0) mg/dL Direct Bilirubin (0.0-0.5) mg/dL AST (5-31) U/L ALT (0-31) U/L Alkaline Phosphatase (39-117) U/L Troponin I High Sens < 3.5 (<3.5-17.0) ng/L B-Natriuretic Peptide < 10 (<100) pg/mL Total Protein (6.5-8.0) g/dL Albumin (3.5-5.0) g/dL Discharge Plan Discharge Clinical Impression: Dyspnea Qualifiers: Dyspnea type: shortness of breath Qualified Code(s): R06.02 - Shortness of breath Patient Disposition: Home, Self-Care Instructions: Dyspnea (ED) Additional Instructions: Please follow-up with your primary care physician tomorrow. If you have any worsening or new symptoms, please return to the emergency room or call 911 Prescriptions: New prednisone 20 mg tablet 40 mg PO DAILY Qty: 5 RF: 0 No Action miconazole nitrate [Monistat 7] 2 % cream 1 appful vaginal BEDTIME 7 Days Qty: 45 RF: 0 miconazole nitrate [Monistat 7] 2 % cream 1 appful vaginal BEDTIME 7 Days Qty: 45 RF: 0 prenat.vits,connie,[id number] Tablet 1 tab PO BEDTIME RF: 0
[2020-03-28 16:32] VITALS: BP 104/59; PULSE 80; RESP 14; O2SAT 100
[2020-03-28 16:40] LABS: MANUAL DIFF FLAG NO
[2020-03-28 16:42] LABS: Basophils Percent Auto 0.1 % (0-2); Eosinophils Percent Auto 0.2 % (0-4); Hematocrit 31.6 % (37-47); Hemoglobin 10.5 g/dl (12.0-16.0); Imm Gran Abs Auto 0.08 X10*3/uL (0.00-0.03); Lymphocytes Absolute Auto 1.3 X10*3/uL (1.2-4.9); Lymphocytes Percent Auto 15.9 % (20-40); Mean Corpuscular HGB Conc 33.2 g/dl (31.0-35.0); Mean Corpuscular Hemoglobin 30.3 pg (27.0-33.0); Mean Corpuscular Volume 91.1 fL (80-98); Mean Platelet Volume 9.6 fL (9.4-12.3); Monocytes Absolute Auto 0.6 X10*3/uL (0.1-1.2); Monocytes Percent Auto 6.9 % (2-11); Neutrophils Absolute Auto 6.3 X10*3/uL (2.0-8.3); Neutrophils Percent Auto 75.9 % (45-73); Platelet Count 216 X10*3/uL (160-400); Red Blood Count 3.47 X10*6/uL (4.20-5.50); Red Cell Distribution Width 13.2 % (11.0-16.0); White Blood Count 8.4 X10*3/uL (4.8-10.8)
[2020-03-28 16:51] LABS: D Dimer 236 NG/ML
[2020-03-28 17:07] LABS: Alanine Aminotransferase 7 U/L (0-31); Albumin Level 3.7 g/dL (3.5-5.0); Alkaline Phosphatase 51 U/L (39-117); Anion Gap 9 (12-20); Aspartate Amino Transferase 11 U/L (5-31); Bilirubin Direct < 0.2 mg/dL (0.0-0.5); Bilirubin Total 0.3 mg/dL (0.0-1.0); Blood Urea Nitrogen 6 mg/dL (9-16); Calcium 8.7 mg/dL (8.4-10.2); Carbon Dioxide 25 mmol/L (22-29); Chloride 104 mmol/L (96-108); Creatinine Clr Calc Pharmacy 134.1; Estimated Glomerular Filt Rate > 60; Glucose Random 73 mg/dL (60-115); Potassium 3.6 mmol/L (3.3-5.1); Sodium 134 mmol/L (135-145); Total Protein 6.4 g/dL (6.5-8.0)
[2020-03-28 17:09] LABS: B Type Natriuretic Peptide < 10 pg/mL (<100); Troponin-I High Sensitivity < 3.5 ng/L (<3.5-17.0)
[2020-03-28 18:12] VITALS: BP 110/63; PULSE 94; RESP 18; TEMP 37; O2SAT 99
[2020-03-28 20:50] VITALS: BP 107/59; PULSE 74; RESP 188; TEMP 37.2; O2SAT 100
== END 2020-03-28 21:40 | disposition home or self-care (01) ==
PROVIDERS: Emergency Provider Emergency Medicine; PCP Nurse Practitioner Primary Care
DX: O26.92 Pregnancy related conditions, unspecified, second trimester (principal); R60.0 Localized edema; R06.02 Shortness of breath; R07.89 Other chest pain; Z3A.15 15 weeks gestation of pregnancy
CPT/HCPCS: 36415; 71045; 80048; 80076; 83880; 84484; 85025; 85379; 93005; 93970; 99283; 99284

== ENCOUNTER → 2020-04-08 16:28 | Outpatient (BNVA) | payer MEDICAID, SELFPAY | PROVIDERS: PCP Nurse Practitioner Primary Care; Visit Provider Advanced Practice Midwife | DX: Z76.89 Persons encountering health services in other specified circumstances (principal) | CPT/HCPCS: 99212 ==

== ENCOUNTER → 2020-05-07 15:27 | Outpatient (BNVA) | payer MEDICAID, SELFPAY | PROVIDERS: Visit Provider Advanced Practice Midwife | DX: Z13.89 Encounter for screening for other disorder (principal) | CPT/HCPCS: 99212 ==

== ENCOUNTER 2020-05-10 14:17 | Outpatient (REF) | payer MEDICAID, SELFPAY ==
--- NOTE | ~2020-05-10 | US_ITS ---
EXAMINATION: US OBSTETRICAL CLINICAL INFORMATION: 19-year-old at 21.6 weeks of gestation Suspected anomaly COMPARISON: 03/28/2020 TECHNIQUE: Real-time transabdominal ultrasound was performed using C1-5 megahertz transducer. FINDINGS: A single, active, fetus is seen in vertex presentation. The placenta is posterior without previa, and the amniotic fluid volume is wnl. MEASUREMENTS: 1. Biparietal Diameter: 5.4 cm; 22.4 wks 2. Occipital Frontal Diameter: 7.0 cm 3. Head Circumference: 19.8 cm; 22.0 wks 4. Abdominal Circumference: 17.1 cm; 22.1 wks 5. Femur Length: 3.7 cm; 21.5 wks 6. Humerus Length: 3.45 cm; 21.6 wks 7. Tibia Length: 3.3 cm; 22.1 wks 8. Ulna Length: 3.2 cm; 22.0 wks 9. Lateral ventricle: 0.51 cm 10. Cerebellum: 2.41 cm; 23.5 wks 11. Cisterna Magna: 0.42 cm 12. Nuchal Fold: 4.8 mm 13. Heart Rate: 152 beats per minute Rt ovary: normal Lt ovary: normal Cervical length 4.5 cm on T/A. GESTATIONAL AGE: 1. Established GA: 21.6 wks 2. GA from [facility]: 22.1 wks ESTIMATED DATE OF DELIVERY: 1. Established NIKITA: 09/14/2020 2. NIKITA from [facility]: 09/12/2020 ANATOMY: The visualized anatomy includes but not limited to: 1. Cranium: Normal 2. Intracranial anatomy: cavum septum pellucidi, lateral ventricles, choroid plexus, cerebellum, posterior fossa, third and fourth ventricles. 3. face: orbits, lip/palate, profile, nasal bone 4. Heart: four-chamber view of the heart, ventricular septum, foramen ovale, pulmonary vein, left and right outflow tracts, three-vessel view, 3 vessel trachea view, aortic and ductal arches, situs.. 5. Diaphragm: Normal 6. Abdominal wall: Normal 7. Cord Insertion: Normal 8. Spine: Cervical, thoracic, lumbar, sacral. 9. Stomach: Normal size and shape 10. Right Kidney: Normal 11. Left Kidney: Normal 12. 3 vessel cord: Normal 13. Upper extremity: Open hands, fifth digit. 14. Lower extremity: Tibia, fibula, bilateral feet. 15. Bladder: Normal 16. Genitalia: Female, patient aware US/US OB /maternal detail IMPRESSION: 1. Single, living, intrauterine with appropriate biometry. 2. Normal survey DISCUSSION: I reviewed today's ultrasound findings. We discussed the limitations of ultrasound in diagnosing aneuploidy and other congenital abnormalities. I reviewed the differences between screening test and diagnostic test. Amniocentesis was discussed and declined. She was informed that the baseline incidence of congenital abnormalities is approximately 3-5%. Not all these conditions are diagnosable in utero. RECOMMENDATIONS: 1. Follow-up when necessary. Thank you for allowing me to participate in her care. Total time 20 minutes. The time spent was devoted to counseling the patient about the disease and diagnosis, coordinating care including reviewing her records, pertinent lab data and studies, as well as discussing diagnostic evaluation and workup, plan therapeutic interventions and future disposition of care. This includes any additional research needed to obtain further information in formulating the plan of care of this patient. This note was generated with a voice recognition program. Please excuse any errors which may have been overlooked during my review of this note. Sometimes these errors may affect the content or meaning of a given sentence.
== END 2020-05-10 14:18 | disposition home or self-care (01) ==
LOC: HO.US 14:17
PROVIDERS: Visit Provider Advanced Practice Midwife
DX: Z36.3 Encounter for antenatal screening for malformations (principal); O35.9XX0 Maternal care for (suspected) fetal abnormality and damage, unspecified, not applicable or unspecified
CPT/HCPCS: 76811

== ENCOUNTER 2020-05-24 15:09 | Emergency (ER) | payer MEDICAID, SELFPAY ==
--- NOTE | ~2020-05-24 | US_ITS ---
EXAMINATION: ULTRASOUND CLINICAL INFORMATION: 6 months with decreased motion COMPARISON: 05/11/2019 TECHNIQUE: Limited study was performed for viability FINDINGS: A single fetus was present with a cephalic presentation. Fetus was active during the course of the exam. A normal heart rate of 149 bpm was seen. Placenta was located posteriorly and is grade 2. measurements were not performed. US/US OB limited IMPRESSION: The fetus is active and a normal heartbeat of 149 bpm was present.
[2020-05-24 15:43] VITALS: BP 125/58; PULSE 68; RESP 16; TEMP 37.1; O2SAT 99; BMI 31.4
--- NOTE | 2020-05-24 16:01 | PC.NURSE ---
heart rate was 147-156 strong and regular left lower quadrant
[2020-05-24 19:03] VITALS: BP 126/72; PULSE 79; RESP 16; TEMP 37.1; O2SAT 99
[2020-05-24 19:29] LABS: Glucose Urine UA NEG (NEG); Leukocyte Esterase Urine TRACE (NEG); Nitrite Urine NEG (NEG); UACC Culture Trigger YES; Urine Blood NEG (NEG); Urine Ketones NEG (NEG); Urine Protein NEG (NEG-TRACE)
[2020-05-24 19:30] LABS: Appearance Urine CLEAR; Color Urine YELLOW
--- NOTE | 2020-05-24 19:35 | ED_ITS ---
HPI - Abdominal Pain General Chief Complaint: Abdominal Pain Stated Complaint: Cramping, baby not moving as much, 6 months preg Time Seen by Provider: 05/24/20 18:11 Source: patient Mode of arrival: ambulatory Limitations: no limitations History of Present Illness HPI narrative: Patient is 24 weeks for last 2 days noticed baby is not moving well, no vaginal bleeding slight lower abdominal cramping no trauma to abdomen no fever no chills no vaginal discharge Related Data Home Medications Medication Instructions Recorded Confirmed prenat.vits,connie,riv-jjap-lbnoi 1 tab PO BEDTIME 01/23/20 03/15/20 albuterol sulfate 90 mcg/actuation 1 inh INHALATION Q4-6H PRN 04/08/20 breath activated powder inhaler fluticasone propionate 44 2 puff INHALATION BID 04/08/20 mcg/actuation HFA aerosol inhaler pyridoxine (vitamin B6) 25 mg 25 mg PO DAILY 04/08/20 tablet Previous Rx's Medication Instructions Recorded miconazole nitrate 2 % vaginal 1 appful VAGINAL BEDTIME 7 Days 01/26/20 cream #45 g miconazole nitrate 2 % vaginal 1 appful VAGINAL BEDTIME 7 Days 03/12/20 cream #45 g prednisone 40 mg PO DAILY #5 tab 03/28/20 Allergies Allergy/AdvReac Type Severity Reaction Status Date / Time No Known Allergies Allergy Verified 05/07/20 15:30 Review of Systems Review of Systems Yes all other systems are reviewed and are negative Physical Exam Vital Signs: Vital Signs: Last Vital Signs Temp 98.7 F 05/24/20 19:03 Pulse 79 05/24/20 19:03 Resp 16 05/24/20 19:03 BP 126/72 05/24/20 19:03 Pulse Ox 99 05/24/20 19:03 Body Mass Index 31.4 Appearance: Alert. Oriented X3. No acute distress. Eyes: Pupils equal, round and reactive to light. ENT: Pharynx normal. Neck: Normal inspection. Neck supple. CVS: Normal heart rate and rhythm. Pulses normal. Respiratory: No respiratory distress. Breath sounds normal. Abdomen: Soft and nontender. Gravid uterus Bowel sounds are present, no CVA tenderness Skin: Skin warm and dry. Normal skin color. Normal skin turgor. Extremities: No lower extremity edema. Neuro: Oriented X 3. No motor deficit. No sensory deficit. MDM - Abdominal Pain MDM Narrative Medical decision making narrative: Ultrasound of abdomen showed normal movements with heart rate of 149 beats per minute Lab Data Attestation: I reviewed the patient's lab results. Labs: Lab Results 05/24/20 Range/Units 19:08 Urine Color YELLOW Urine Appearance CLEAR Urine pH 7.0 (5.0-8.0) Ur Specific [place] 1.020 (1.005-1.025) Urine Protein NEG (NEG-TRACE) MG/DL Urine Glucose (UA) NEG (NEG) MG/DL Urine Ketones NEG (NEG) MG/DL Urine Blood NEG (NEG) Urine Nitrite NEG (NEG) Ur Leukocyte Esterase TRACE H (NEG) Urine RBC 0-2 (0) /HPF Urine WBC 1-4 (0-4) /HPF Ur Squamous Epith Cells TRACE /LPF Urine Bacteria 1+ /LPF Imaging Data US - abdomen: Attestation: I personally reviewed and interpreted this imaging study as follows: Radiologist's impression: Patient: Sonam Contreras#: [id number]: 2000Acct:[id number]/Sex: 19 / FADM Date: 05/24/20Loc: [facility].EDAttending Dr: Ordering Physician: Esteban Acosta MD Date of Service: 05/24/20 Procedure(s): US OB limited Accession Number(s): [id number] cc: Esteban Acosta MD~ EXAMINATION: ULTRASOUND CLINICAL INFORMATION: 6 months with decreased motion COMPARISON: 05/11/2019 TECHNIQUE: Limited study was performed for viability FINDINGS: A single fetus was present with a cephalic presentation. Fetus was active during the course of the exam. A normal heart rate of 149 bpm was seen. Placenta was located posteriorly and is grade 2. measurements were not performed. US/US OB limited IMPRESSION: The fetus is active and a normal heartbeat of 149 bpm was present. Dictated By:OSEI RESENDIZ MDSigned By:<Electronically signed by OSEI RESENDIZ MD in OV>05/24/201922 Discharge Plan Discharge Clinical Impression: Patient Disposition: Home, Self-Care Instructions: at 23 to 26 Weeks (ED) Additional Instructions: Follow-up with your OBG Report to the ER if any vaginal bleed Prescriptions: No Action miconazole nitrate [Monistat 7] 2 % cream 1 appful vaginal BEDTIME 7 Days Qty: 45 RF: 0 miconazole nitrate [Monistat 7] 2 % cream 1 appful vaginal BEDTIME 7 Days Qty: 45 RF: 0 prednisone 20 mg tablet 40 mg PO DAILY Qty: 5 RF: 0 prenat.vits,connie,pww-tzyo-zzzql Tablet 1 tab PO BEDTIME RF: 0 albuterol sulfate 90 mcg/actuation aerosol powdr breath activated 1 inh inhalation Q4-6H PRNRF: 0 Flovent HFA 44 mcg/actuation HFA aerosol inhaler 2 puff inhalation BID RF: 0 pyridoxine (vitamin B6) 25 mg tablet 25 mg PO DAILY RF: 0 Interventions: ED Discharge Assessment Last Done: 05/24/20 19:58 Discharge Date/Time: 05/24/20 19:58 PMFSH Past Medical History Medical History Asthma PCOS (polycystic ovarian syndrome) Family History Family History Father No problems noted. Mother History of brain tumor Hx of acute arthritis Maternal Grandmother History of asthma Hx of acute arthritis Hx of diabetes mellitus Hx of kidney disease Maternal Grandfather No problems noted. Paternal Grandfather No problems noted. Paternal Grandmother Hx of breast cancer Social History Social History Household Members: Significant Other Alcohol intake: never Smoking Status: Never smoker Use of substances other than those prescribed or required for medical reasons: No Advance Directives: No Advance Directives Information Provided: No service: No Current occupational status: employed Current occupation: Works at school Current occupational exposures/hazards: No
[2020-05-24 19:41] LABS: Bacteria Urine 1+ /LPF; RBC Urine 0-2 /HPF (0); Squamous Epithelial Cell Urine TRACE /LPF
== END 2020-05-24 19:58 | disposition home or self-care (01) ==
PROVIDERS: Emergency Provider Internal Medicine; PCP Nurse Practitioner Primary Care
DX: Z34.02 Encounter for supervision of normal first pregnancy, second trimester (principal)
CPT/HCPCS: 76815; 81001; 81003; 87086; 99284

== ENCOUNTER 2020-08-20 11:31 | Outpatient (REF) | payer MEDICAID, SELFPAY ==
[2020-08-20 11:54] LABS: MANUAL DIFF FLAG NO
[2020-08-20 12:00] LABS: Basophils Percent Auto 0.3 % (0-2); Eosinophils Absolute Auto 0.1 X10*3/uL (0.0-0.4); Eosinophils Percent Auto 0.8 % (0-4); Hematocrit 31.3 % (37-47); Hemoglobin 9.9 g/dl (12.0-16.0); Imm Gran Abs Auto 0.47 X10*3/uL (0.00-0.03); Imm Gran Pct Auto 4.9 % (0.0-0.4); Lymphocytes Absolute Auto 1.2 X10*3/uL (1.2-4.9); Mean Corpuscular HGB Conc 31.6 g/dl (31.0-35.0); Mean Corpuscular Hemoglobin 25.7 pg (27.0-33.0); Mean Corpuscular Volume 81.3 fL (80-98); Mean Platelet Volume 10.3 fL (9.4-12.3); Monocytes Percent Auto 10.4 % (2-11); Neutrophils Absolute Auto 6.7 X10*3/uL (2.0-8.3); Neutrophils Percent Auto 70.6 % (45-73); Platelet Count 241 X10*3/uL (160-400); Red Blood Count 3.85 X10*6/uL (4.20-5.50); Red Cell Distribution Width 14.6 % (11.0-16.0); White Blood Count 9.5 X10*3/uL (4.8-10.8)
[2020-08-20 12:17] LABS: Glucose Fasting 75 mg/dL (60-99)
[2020-08-20 12:19] LABS: Estimated Average Glucose 100 mg/dL; Hemoglobin A1C 85.4945 umol/L; Hemoglobin A1c % 5.1 %
[2020-08-20 13:55] LABS: CT PCR NOT DETECTED (Not Detect.); NG PCR NOT DETECTED (Not Detect.)
== END 2020-08-20 11:32 | disposition home or self-care (01) ==
LOC: HO.LAB 11:31
PROVIDERS: PCP Nurse Practitioner Primary Care; Visit Provider Advanced Practice Midwife
DX: Z34.90 Encounter for supervision of normal pregnancy, unspecified, unspecified trimester (principal)
CPT/HCPCS: 82947; 83036; 85025; 87491; 87591

== ENCOUNTER → 2022-07-29 09:25 | Outpatient (BNVA) | payer MEDICAID, SELFPAY | PROVIDERS: PCP Nurse Practitioner Primary Care; Visit Provider Advanced Practice Midwife | DX: E28.2 Polycystic ovarian syndrome (principal); N91.1 Secondary amenorrhea; Z32.02 Encounter for pregnancy test, result negative | CPT/HCPCS: 81025; 99212 ==

== ENCOUNTER 2023-01-18 17:22 | Emergency (ER) | payer MEDICAID, SELFPAY ==
--- OUTSIDE RECORDS SUMMARY | 2023-01-22 06:46 | XMS_ITS | Continuity of Care Document ---
Author Name Unknown Organization [facility] Address [address] [place] [address]- Care Team Providers Care Assembly Room Supervisor Name Role Phone Leland LEY, Beni Dacosta Primary Care Physician [facility] [id number] Date(s): 03/23/19 - 04/02/19 [facility] [address] [address]- [facility] Attending Physician: Ashvin Wilhelm Admitting Physician: AdmtrAshvin Referring Physician: AdmtrAshvin Allergies, Adverse Reactions, Alerts Substance Reaction Severity Status No known allergies Active Medications Acapella Airway Clearance Device Acapella Airway Clearance Device, See Instructions, # 1 each, Refills 0, Tot. Refills 0, Maintenance, Acapella Airway Clearance Device and Instruction, 08/27/10 10:49:00 Start Date: 08/27/10 Status: Ordered albuterol 0.083% inhalation solution See Instructions, 3 mL Neb Every 4 hours while awake until illness resolves, # 30 each, 1 Refills, Maintenance, Solution Start Date: 08/24/10 Status: Ordered albuterol CFC free 90 mcg/inh inhalation aerosol 2 puffs, Inhalation, 4 times a day, PRN for wheezing, # 25 Gm, 0 Refills, Maintenance, 04/23/15 9:21:41, Aerosol Start Date: 04/23/15 Status: Ordered famotidine 10 mg oral tablet 1 tablet = 10 mg, By Mouth, 2 times a day, # 60 tablet, 0 Refills, Tablet Start Date: 01/18/09 Stop Date: 02/17/09 Status: Ordered Flovent HFA 110 mcg/inh inhalation aerosol with adapter 2 puffs, Inhalation, 2 times a day, # 12 Gm, 3 Refills, Maintenance Start Date: 08/27/10 Status: Ordered loratadine 10 mg oral tablet 1 tablet = 10 mg, By Mouth, Daily, PRN allergy symptoms, # 30 tablet, 1 Refills Start Date: 12/05/08 Stop Date: 01/04/09 Status: Ordered MDI spacer MDI spacer, See Instructions, # 1 units, Refills 0, Tot. Refills 0, use as directed with albuterol and flovent inhaler, 01/18/09 14:41:27 Start Date: 01/18/09 Status: Ordered montelukast 5 mg oral tablet, chewable 1 tablet = 5 mg, Chew, Daily at bedtime, # 30 tablet, 6 Refills, Maintenance, Chew Tablet Start Date: 08/24/10 Status: Ordered Ortho Tri-Cyclen oral tablet 1 tablet, By Mouth, Daily, # 28 tablet, 3 Refills, Maintenance, 03/23/19 11:04:00 EST, Tablet, [facility], 1 tablet By Mouth Daily, 156, cm, 03/23/19 9:21:00 EST, Height, 75.8, kg, 03/23/19 9:21:00 EST, Dry Weight Start Date: 03/23/19 Status: Ordered predniSONE 20 mg oral tablet 2 tablet = 40 mg, By Mouth, Daily, # 10 tablet, 0 Refills, Maintenance, 04/23/15 9:37:50, Tablet Start Date: 04/23/15 Status: Ordered ProAir HFA 90 mcg/inh inhalation aerosol with adapter 2-4 puffs, Inhalation, Every 4 hours, PRN cough, wheeze, difficulty breathing, # 1 each, 6 Refills,Maintenance Start Date: 08/24/10 Status: Ordered Problem List Condition Effective Dates Status Health Status Inform ant Abdominal pain(Confirmed) Active Anxiety(Confirmed) Active Asthma(Confirmed) Active Depression(Confirmed) Active Social History Social History Type Response Smoking Status Never (less than 100 in lifetime) entered on: 03/23/19 Sex
--- OUTSIDE RECORDS SUMMARY | 2023-01-22 06:46 | XMS_ITS | Continuity of Care Document ---
Author Name Unknown Organization [facility] Address [address] [address]- Care Team Providers Care Strap Setter Name Role Phone Leland LEY, Beni Dacosta Primary Care Physician [place] [facility] [place] - 07/12/19 [facility] [address] [place] [address]- [facility] Attending Physician: Ashvin Wilhelm Admitting Physician: AdmtrAshvin [...] 3 Refills, Maintenance, 03/23/19 11:04:00 EST, Tablet, [facility] - , 1 tablet By Mouth Daily, 156, cm, [...]
--- OUTSIDE RECORDS SUMMARY | 2023-01-22 06:46 | XMS_ITS | Continuity of Care Document ---
Author Name Unknown Organization [facility] Address [address] [place] [address], [address] [place] [address]- Care Team Providers Care Automobile Club Travel Counselor Name Role Phone Andrey COLMENARES, Estephania Patrick Primary Care Physician [facility] Date(s): 08/01/22 - 11/29/22 [facility] [address] [facility], [address] [place] [address]- Attending Physician: Not on Staff, Attending MD Referring Physician: Estephania Balderas NP Allergies, Adverse Reactions, Alerts No Known Allergies Medications fluconazole 150 mg oral tablet 1 tablet = 150 mg, By Mouth, Once, # 1 tablet, 0 Refills, Soft Stop, 10/22/22 6:49:00 EDT, Tablet, [id number], Partial fill upon patient request if the prescription is for a schedule II opioid drug., 154, cm, 10/08/22 11:08:00 EDT, Height, 85.... Start Date: 10/22/22 Status: Ordered PNV Select oral tablet 1 tablet, By Mouth, Daily, Please prescribe PNVs that are covered by pt's insurance., # 30 tablet, 11 Refills, Maintenance, 09/18/22 13:55:00 EDT, [id number], Partial fill upon patient request if the prescription is for a schedule II opioid . Start Date: 09/18/22 Stop Date: 09/13/23 Status: Ordered ProAir HFA 90 mcg/inh inhalation aerosol with adapter 2-4 puffs, Inhalation, Every 4 hours, PRN cough, wheeze, difficulty breathing, # 1 each, 6 Refills,Maintenance Start Date: 08/24/10 Status: Ordered Problem List Condition Confirmation Course Effective Dates Status Health St atus Informant Abdominal pain Confirmed Active Anxiety Confirmed Active Asthma Confirmed Active Depression Confirmed Active History of depression 1 Confirmed Active PCOS (polycystic ovarian syndrome) Confirmed Active Rh negative Confirmed Active Severe obesity (BMI 35.0-39.9) with comorbidity Confirmed Active 1Postpartum Depression saw a therapist Social History Social History Type Response Smoking Status Never (less than 100 in lifetime) entered on: 10/08/22 Sex Patient Care team information Care Team Personnel Name: Estephania Balderas NP Position: [facility] Outreach Member Role: PCP Address: Address: [address] [place] [address]- Care Team Related Persons Name: CARROLL ESPINO Address: home [address] [place] [address] Name: MADAI RUIZ Address: [address] [place] [address] Name: BRODERICK JUAREZ Address: home [address] [place] [address]
--- OUTSIDE RECORDS SUMMARY | 2023-01-22 06:46 | XMS_ITS | Continuity of Care Document ---
Author Name Unknown Organization [facility] Address [address] [address]- Care Team Providers Care Night Auditor Name Role Phone Andrey COLMENARES, Estephania Patrick Primary Care Physician Encounter [facility] Date(s): 12/25/22 - 01/01/23 [facility] [address] [address]- Attending Physician: Lisa Matthews MD Admitting Physician: Meenu Capone CNM Referring Physician: Meenu Capone CNM Allergies, Adverse Reactions, Alerts No Known Allergies Medications PNV Select oral tablet 1 tablet, By Mouth, Daily, Please prescribe PNVs that are covered by pt's insurance., # 30 tablet, 11 Refills, Maintenance, 09/18/22 13:55:00 EDT, [id number], Partial fill upon patient request if the prescription is for a schedule II opioid . Start Date: 09/18/22 Stop Date: 09/13/23 Status: Ordered ProAir HFA 90 mcg/inh inhalation aerosol with adapter 2-4 puffs, Inhalation, Every 4 hours, PRN cough, wheeze, difficulty breathing, # 1 each, 6 Refills,Maintenance Start Date: 08/24/10 Status: Ordered Problem List Condition Confirmation Course Effective Dates [facility] Informant Abdominal pain Confirmed Active Anxiety Confirmed Active Asthma Confirmed Active Depression Confirmed Active Family history of heart murmur Confirmed Active Previous section Confirmed Active History of depression 1 Confirmed Active History of depression Confirmed Active PCOS (polycystic ovarian syndrome) Confirmed Active Confirmed Active Rh negative Confirmed Active Severe obesity (BMI 35.0-39.9) with comorbidity Confirmed Active 1Postpartum Depression saw a therapist Vital Signs Most recent to oldest [Reference Range]: 1 Height 154 cm (12/25/22 11:26 AM) Weight 87.2 kg (12/25/22 11:26 AM) Body Mass Index [18.5-24.99 kg/m2] 36.77 kg/m2 *>HHI* (12/25/22 11:26 AM) Blood Pressure [90-138/55-84 mm Hg] 137/ 79mm Hg (12/25/22 11:26 AM) Blood pressure sites Arm, left (12/25/22 11:26 AM) Weight Obtained Via Standing scale (12/25/22 11:26 AM) Social History Social History Type Response Smoking Status Never (less than 100 in lifetime) entered on: 10/08/22 Sex Patient Care team information Care Team Personnel Name: Estephania Balderas NP Position: [facility] Outreach Member Role: PCP Address: Address: [address] [place] [address]- Care Team Related Persons Name: CARROLL ESPINO Address: home [address] [place] [address] Name: MADAI RUIZ Address: [address] [place] [address] Name: BRODERICK JUAREZ Address: [address] [place] [address]
--- OUTSIDE RECORDS SUMMARY | 2023-01-22 06:46 | XMS_ITS | Continuity of Care Document ---
Author Name Unknown Organization [facility] Address [address] [address]- Care Team Providers Care Search Manager Name Role Phone Beni Ha MD Primary Care Physician [id number] Date(s): 06/09/19 - 07/12/19 [facility] [address] [place] [address]- [facility] Attending Physician: Not on Staff, Attending MD Referring Physician: Beni Ha MD Allergies, Adverse Reactions, Alerts Substance Reaction Severity [...] 3 Refills, Maintenance, 03/23/19 11:04:00 EST, Tablet, [facility] - , 1 tablet By Mouth [...]
--- OUTSIDE RECORDS SUMMARY | 2023-01-22 06:46 | XMS_ITS | Continuity of Care Document ---
Author Name Unknown Organization [facility] Address [address] [facility], [address] [place] [address]- Care Team Providers Care Medical Staff Assistant Name Role Phone Andrey COLMENARES, Estephania Patrick Primary Care Physician [phone] Encounter [facility] Date(s): 10/23/22 - 11/22/22 [facility] [address] [facility], [address] [place], [place] [address] Attending Physician: Admtr, Maxim8 Admitting Physician: Admtr, Ar8 Referring Physician: Admtr, Ar8 Allergies, Adverse Reactions, Alerts No Known Allergies [...] prescription is for a schedule II opioid Start Date: 09/18/22 Stop Date: 09/13/23 Status: [...] Care team information Care Team Personnel Name: Andrey COLMENARES, Estephania Patrick Position: [facility] Outreach Member Role: PCP Address: Address: [address] [place] [address]- Care Team Related Persons Name: CARROLL ESPINO Address: home [address] [place] [address] Name: MADAI RUIZ Address: home [address] [place] [address] Name: BRODERICK JUAREZ Address: home [address] [place] [address]
--- OUTSIDE RECORDS SUMMARY | 2023-01-22 06:46 | XMS_ITS | Continuity of Care Document ---
Author Name Unknown Organization [facility] Address [address] [place] [address]- Care Team Providers Care Telecommunications Field Engineer Name Role Phone Leland LEY, Beni Dacosta Primary Care Physician Encounter [facility] Date(s): 01/09/20 - 02/08/20 [facility] [address] [place] [address]- Attending Physician: AdmAshvin mccoy Admitting Physician: AdmtrAshvin Referring Physician: Admtr, Ar8 Allergies, Adverse Reactions, Alerts Substance Reaction Severity [...] 3 Refills, Maintenance, 03/23/19 11:04:00 EST, Tablet, [facility], 1 tablet By Mouth Daily, 156, cm, [...]
--- OUTSIDE RECORDS SUMMARY | 2023-01-22 06:46 | XMS_ITS | Continuity of Care Document ---
Author Name Unknown Organization [facility] Address [address] [address]- Care Team Providers Care Float Operator Name Role Phone Andrey COLMENARES, Estephania Patrick Primary Care Physician En[facility] Date(s): 10/08/22 - 11/07/22 [facility] [address] [address] Attending Physician: AdmAshvin mccoy Admitting Physician: AdmtrAshvin [...] Personnel Name: Andrey COLMENARES, Estephania Patrick Position: [facility] Outreach Member Role: PCP Address: Address: [address] [place] [address], [place] [address]- Care Team Related Persons Name: CARROLL ESPINO Address: home [address] [place] [address] Name: MADAI RUIZ Address: [address] [place] [address] Name: BRODERICK JUAREZ Address: [address] [place] [address]
--- OUTSIDE RECORDS SUMMARY | 2023-01-22 06:46 | XMS_ITS | Continuity of Care Document ---
Author Name Unknown Organization [facility] Address [address] [place] [id number]- Care Team Providers Care Welfare Service Aide Name Role Phone Andrey COLMENARES, Estephania Patrick Primary Care Physician Encounter [facility] [place] Date(s): 10/22/22 - 11/21/[address] [address] Allergies, Adverse Reactions, Alerts No Known Allergies Medications fluconazole 150 mg oral tablet 1 tablet = 150 mg, By Mouth, Once, # 1 tablet, 0 Refills, Soft Stop, 10/22/22 6:49:00 EDT, Tablet, [facility]/pharmacy #[id number], Partial fill upon patient request if [...] prescription is for a schedule II opioid drNancy. Start Date: 09/18/22 Stop Date: 09/13/23 Status: Ordered ProAir HFA 90 mcg/inh inhalation aerosol with adapter 2-4 puffs, Inhalation, Every 4 hours, PRN cough, wheeze, difficulty breathing, # 1 each, 6 Refills,Maintenance Start Date: 7/10/11 Status: Ordered Problem List Condition Confirmation Course [...] Team Personnel Name: Estephania Balderas NP Position: [facility] Outreach Member Role: PCP Address: Address: [address] [place] [address]- Care Team Related Persons Name: CARROLL ESPINO Address: [address] [place] [address] Name: MADAI RUIZ Address: [address] [place] [address] Name: BRODERICK JUAREZ Address: [address] [place] [address]
--- OUTSIDE RECORDS SUMMARY | 2023-01-22 06:46 | XMS_ITS | Continuity of Care Document ---
Author Name Unknown Organization [facility] ter Address [address] [place] [address]- Care Team Providers Care Stablehand Name Role Phone Leland LEY, Beni Dacosta Primary Care Physician [place] [facility] [place] 03/23/19 - 03/23/[address] [address]- [place] Attending Physician: Not on Staff, Attending MD Allergies, Adverse Reactions, Alerts Substance Reaction [...] 3 Refills, Maintenance, 03/23/19 11:04:00 EST, Tablet, [facility] - , 1 tablet By Mouth [...]
--- OUTSIDE RECORDS SUMMARY | 2023-01-22 06:46 | XMS_ITS | Continuity of Care Document ---
Author Name Unknown Organization [facility] ter Address [address] [place] [id number]- Care Team Providers Care Piano Technician Name Role Phone Andrey CONSTRUCTION ACCOUNTANTEstephnaia Primary Care Physician Encounter [facility] [place] Date(s): 01/19/23 - 01/19/[address] [address]- Discharge Disposition: A-D/C Walkout Attending Physician: Not on Staff, Attending MD Admitting Physician: Not on Staff, Admitting MD Referring Physician: Not on Staff, Referring MD Allergies, Adverse Reactions, Alerts No Known Allergies Medications acetaminophen 325 mg oral capsule 2 capsule = 650 mg, By Mouth, Every 6 hours, PRN Pain , Mild, # 90 capsule, 0 Refills, Maintenance,01/19/23 19:31:00 EST, Capsule, [facility] #[id number], Partial fill upon patient request if the prescription is for a schedule II opioid drug., 155, cm, 1... Start Date: 01/19/23 Status: Ordered lidocaine 5% topical film 1 patch, Topically, Daily, remove patches after 12 hours, # 30 patch, 0 Refills, Maintenance, 01/19/23 19:31:00 EST, Film, [id number], Partial fill upon patient request if the prescription isfor a schedule II opioid drug., 1 patch Topically D... Start Date: 01/19/23 Status: Ordered PNV Select oral tablet 1 tablet, By Mouth, Daily, Please prescribe PNVs that are covered by pt's insurance., # 30 tablet, 11 Refills, Maintenance, 09/18/22 13:55:00 EDT, [id number], Partial fill upon patient request if the prescription is for a schedule II opioid dr.Yuridia. Start Date: 09/18/22 Stop Date: 09/13/23 Status: [...] Most recent to oldest [Reference Range]: 1 2 Oxygen Saturation [94-100 %] 100 % (01/19/23 1:05 AM) 100 % (01/19/23 12:59 AM) Pulse Rate [55-90 bpm] 89 bpm (01/19/23 1:05 AM) 93 bpm *H* (01/19/23 12:59 AM) Blood Pressure [90-138/55-84 mm Hg] 125/ 69mm Hg (01/19/23 1:05 AM) Respiratory Rate [16-30 br/min] 20 br/mi n (01/19/23 1:05 AM) 18 br/min (01/19/23 12:59 AM) Temperature [96.8-100.4 DegF] 97.9 DegF (01/19/23 1:05 AM) Mode of Delivery (Oxygen) Room air (01/19/23 1:05 AM) Room air (01/19/23 12:59 AM) Blood pressure sites Arm, right (01/19/23 1:05 AM) Temperature Route Oral (01/19/23 1:05 AM) Social History Social History Type Response Smoking Status Never (less than 100 in lifetime) entered on: 10/08/22 Sex Patient Care team information Care Team Personnel Name: Estephania Balderas NP Position: S Outreach Member Role: PCP Address: Address: [address] [facility], [place] [address]- Care Team Related Persons Name: CARROLL ESPINO Address: home [address] Name: MADAI RUIZ Address: home [address] [place] [address] Name: BRODERICK JURAEZ Address: [address] [address]
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
--- OUTSIDE RECORDS SUMMARY | 2023-01-22 06:46 | XMS_ITS | Continuity of Care Document ---
Author Name Unknown Organization [facility] Address [address] [address]- Care Team Providers Care Marble Mechanic Helper Name Role Phone Andrey COLMENARES, Estephania Patrick Primary Care Physician [phone] Encounter [facility] NBR [id number] Date(s): 10/26/22 - 11/02/22 [facility] [address] [address] Attending Physician: Tayler Sanchez MD Referring Physician: Estephania Balderas NP Allergies, Adverse Reactions, Alerts No Known Allergies Medications fluconazole 150 mg oral tablet 1 tablet = 150 mg, By Mouth, Once, # 1 tablet, 0 Refills, Soft Stop, 10/22/22 6:49:00 EDT, Tablet, [facility]/pharmacy #[id number], Partial fill upon patient request if [...] oldest [Reference Range]: 1 Height 154 cm (10/26/22 12:41 PM) Weight 85.6 kg (10/26/22 12:41 PM) Body Mass Index [18.5-24.99 kg/m2] 36.09 kg/m2 *>HHI* (10/26/22 12:41 PM) Blood Pressure [90-138/55-84 mm Hg] 121/ 73mm Hg (10/26/22 12:41 PM) Blood pressure sites Arm, left (10/26/22 12:41 PM) Weight Obtained Via Standing scale (10/26/22 12:41 PM) Social History Social History Type Response Smoking Status Never (less than 100 in lifetime) entered on: 10/08/22 Sex Patient Care team information Care Team Personnel Name: Estephania Balderas NP Position: [facility] Outreach Member Role: PCP Address: Address: [address] [place] [address]- Care Team Related Persons Name: CARROLL ESPINO Address: home [address] [place] [address] Name: MADAI RUIZ Address: [address] [place] [address] Name: BRODERICK JUAREZ Address: home [address] [place] [address]
--- OUTSIDE RECORDS SUMMARY | 2023-01-22 06:46 | XMS_ITS | Continuity of Care Document ---
Author Name Unknown Organization [facility] [place] [employer] [facility] Address [address] [place] [address]- Care Team Providers Care Preassembler And Inspector Name Role Phone Andrey COLMENRAES, Estephania Patrick Primary Care Physician [id number] Date[facility]s): 10/23/22 - 10/30/22 [facility] [address] [place], [place] [address] Attending Physician: Jessica Blevins MD Referring Physician: Ibis Luong CNM Allergies, Adverse Reactions, Alerts No Known [...] 100 in lifetime) entered on: 10/08/22 Sex Radiology * Event Display: [facility] First Trimester Obstetrical U/S * Event Display: [facility] First Trimester Obstetrical U/S Authored Date: [id number] OBSTETRICS REPORT PATIENT INFO: CMRN: [id number] BMRN: [id number] : [birth year] (21 yrs)(F) Name: KAREN GAMEZ Visit Date: 10/23/2022 11:14 am PERFORMED BY: Performed By: Barbie Wiggins RDMS Attending: Orion Nixon MD Referred By: CHRISTINE Luong CNM Location: [address] INDICATIONS: with uncertain viability O36.80X0 VITAL SIGNS: Height: 5'1 EVALUATION: Num Of Fetuses: 1 Heart Rate(bpm): 167 Cardiac Activity: Present Placenta: Anterior Amniotic Fluid MARGRET FV: Within normal limits BIOMETRY: CRL: 52.9 mm G.Age: 12w 0d NIKITA: 05/07/23 NT: 1.2 mm OB HISTORY: : 4 Term: 1 GESTATIONAL AGE: LMP: 22w 4d Date: 05/18/22 NIKITA: 02/22/23 Best: 11w 5d Det. By: U/S Chiara Freitas NIKITA: 05/09/23 (09/14/22) CERVIX UTERUS ADNEXA: Cervix Appears closed Adnexa No anomalies noted COMMENTS: Viable intrauterine seen. The patient elected to do NIPT genetic screening at your office. Orion Nixon MD Electronically Signed Final Report 10/23/2022 01:44 pm * Event Display: [facility] First Trimester Obstetrical U/S Authored Date: [id number] Please click on pdf link to open report Patient Care team information Care Team Personnel Name: Estephania Balderas NP Position: S Outreach Member Role: PCP Address: Address: [address] [place] [address]- Care Team Related Persons Name: CARROLL ESPINO Address: home [address] [place], [place] Name: MADAI RUIZ Address: home [address] [place], [place] Name: BRODERICK JUAREZ Address: [address] [place] [address]
--- OUTSIDE RECORDS SUMMARY | 2023-01-22 06:46 | XMS_ITS | Continuity of Care Document ---
Author Name Unknown Organization [facility] Address [address] [place] [address]- Care Team Providers Care Cooler Worker Name Role Phone Leland LEY, Beni Dacosta Primary Care Physician Encounter [facility] [id number] Date(s): 03/28/19 - 04/07/[facility] [address] [place] [address]- [facility] Attending Physician: AdmAshvin mccoy Admitting Physician: AdmtrAshvin [...] 3 Refills, Maintenance, 03/23/19 11:04:00 EST, Tablet, [facility] - , 1 tablet By [...]
--- OUTSIDE RECORDS SUMMARY | 2023-01-22 06:46 | XMS_ITS | Continuity of Care Document ---
Author Name Unknown Organization [facility] Address [address] [place] [address]- Care Team Providers Care Parts Product Analyst Name Role Phone Andrey BODY MAKE UP ARTIST, Estephania Patrick Primary Care Physician [phone] Encounter [facility] [place] [place] Date(s): 10/16/22 - 10/23/[address] [address]- Encounter Diagnosis Other specified related conditions, first trimester(Final) - Discharge Disposition: A-D/C Home Attending Physician: Yadira Osorio DO Admitting Physician: Yadira Osorio DO Allergies, Adverse Reactions, Alerts No Known [...] syndrome) Confirmed Active Rh negative Confirmed Active 1Postpartum Depression saw a therapist Vital Signs Most recent to oldest [Reference Range]: 1 Weight 85.2 kg (10/16/22 2:27 PM) Oxygen Saturation [94-100 %] 100 % (10/16/22 2:27 PM) Pulse Rate [55-90 bpm] 82 bpm (10/16/22 2:27 PM) Blood Pressure [90-138/55-84 mm Hg] 122/ 61mm Hg (10/16/22 2:27 PM) Respiratory Rate [16-30 br/min] 18 br/mi n (10/16/22 2:27 PM) Temperature [96.8-100.4 DegF] 98.5 DegF (10/16/22 2:27 PM) Mode of Delivery (Oxygen) Room air (10/16/22 2:27 PM) Blood pressure sites Arm, right (10/16/22 2:27 PM) Temperature Route Oral (10/16/22 2:27 PM) Dry Weight 85.2 kg (10/16/22 2:27 PM) Weight Obtained Via Standing scale (10/16/22 2:27 PM) Dry Weight Obtained Via Standing scale (10/16/22 2:27 PM) Social History Social History Type Response Smoking Status Never (less than 100 in lifetime) entered on: 10/08/22 Sex Note * Event Display: Discharge/Transfer Note Hospital Authored Date: [id number] * Yadira Marmolejo RN: PERFORM Event Display: Discharge/Transfer Note Hospital Authored Date: [id number] Nursing Discharge Note Entered On: 10/16/2022 17:05 EDT Performed On: 10/16/2022 17:04 EDT by Yadira Marmolejo RN Nursing Discharge Note 2 Discharge Time : 10/16/2022 17:00 EDT Discharge Level of Care at Discharge : Home/Correction/Foster Care Patient Left Unit Via : Ambulatory Patient Accompanied Off Unit with : Other: self DC Instructions Provided & Signed by Pt : Yes Patient Understands D/C Instructions : Yes Patient Instructions Discharge Signed : Yes Did Pt have Specialty Bed or Wound Vac : No Yadira Marmolejo RN - 10/16/2022 17:04 EDT * Yadira Marmolejo RN: PERFORM Event Display: Patient Education/Instruction Authored Date: [id number] Inpatient Adult Discharge Instructions [address] [address] Name: KAREN GAMEZ : 2000 Visit: 10/16/2022 13:06:00 Current Date: 10/16/2022 16:44 Account: [id number] Inpatient Adult Discharge Instructions We would like [...] and their families. Surveys are administered by [employer] ?? If further treatment with your primary care physician or another doctor is recommended, it is important for you to keep the appointment. Call your primary care physician or return to the Emergency Department immediately if your condition worsens, fails to improve, or new symptoms develop. If you need to find a doctor, you can call [facility] Link for a referral at [phone] or toll free at [phone] ([phone]) or log in to [email or web address].. ?? [facility], in keeping with [facility] guidance, no longer requires face masks [...] a health care trey of your choosing. Relive is a website that allows you to securely view your medical information including your hospital discharge summary, office visit summaries, medications and follow-up visits. You can also request appointments, renew medications, and request access to your medical information using a health care trey of your choosing, or just ask a question. You can enroll at [email or web address] or register during your next office visit. You have been discharged from [facility], Patient Care Unit: WETU1. If you have any questions regarding these instructions after you leave, please call us and we will be happy to assist you. [facility] Your Care Team Attending Physician Yadira Osorio DO Tests Performed Below is a partial list of the tests performed during your hospitalization. You may have had other tests and procedures not included in this list. Please discuss all test results with your provider. Chlamydia/N. Gonorrhoeae TMA (NAAT)?-- Results Pending -- Vaginosis Vaginitis Panel (BV, CV/TV)?-- Results Pending -- You will be contacted within 72 hours with your results. Primary Care Provider Estephania Balderas NP Advance Directive Health Care Proxy on File No Discharge Vitals Temperature: 98.5 DegF Weight: 85.2 kg Pulse Rate: 82 bpm ?? Respiratory Rate: 18 br/min ?? Systolic Blood Pressure: 122 mm Hg ?? Diastolic Blood Pressure: 61 mm Hg ?? Oxygen Saturation: 100 % ?? Studies Pending All tests and labs ordered during this hospital stay have been completed unless listed below. Please discuss all pending results with your provider listed above in these instructions. ?? Chlamydia/N. Gonorrhoeae TMA (NAAT) Vaginosis Vaginitis Panel (BV, CV/TV) What to do next Instructions From Your Doctor Discharge Orders Scheduled Follow-Up Appointments Wednesday 11:00 AM EDT ?? Where: [facility] DECK ENGINE OPERATOR [address] [place] [address]- Status: Pending Wednesday 10:00 AM EDT ?? With: Ibis Luong CNM Where: [facility] [address] [place] [address]- Status: Pending Discharge Medications KAREN GAMEZ :2000 Visit Date:10/16/2022 Medications: Please continue your medications until treatment is completed or stopped by your provider. Medications not listed below should be discontinued. Discuss any questions related to medications with your provider. What How Much When Instructions Next Dose Unchanged Albuterol (ProAir HFA 90 mcg/ inh inhalation aerosol with adapter) 2-4 puffs Inhalation Every 4 hours as needed for cough, wheeze, difficulty breathing Unchanged Doxylamine (doxylamine 25 mg oral tablet) 0.5 tab(s) Oral Daily at Bedtime as needed for Nausea & Vomiting Duration: 30 Days Unchanged Multivitamin, (PNV Select oral tablet) 1 tab(s) Oral Daily Duration: 30 Days Please prescribe PNVs that are covered by pt's insurance. ?? Unchanged Pyridoxine (pyridoxine 25 mg oral tablet) 1 tab(s) Oral 3 times a day as needed for Nausea & Vomiting Duration: 30 Days Test Results Below is a partial list of the most recent Laboratory test results done prior to this discharge. You may have had other tests and procedures not included in this list. Please discuss all test resultswith your provider. Allergies (NKA means No Known Allergies) NKA Problems Active Problems??(7) Abdominal pain?? Anxiety?? Asthma?? Depression?? History of depression?? PCOS (polycystic ovarian syndrome)? Education Materials Below is the list of Educational Leaflet Providered with your Discharge Instructions. Adapting to : First Trimester?? Valuables and Belongings I fully understand and agree that [facility] accepts no responsibility for all my personal [...] Status?? Pulmonary Rehab Discharge Status?? Respiratory Rate: 18 br/min ? Common Emergency Awareness Tips IS [...] are strongly encouraged to quit. Please call [facility] [employer] Link at [phone] or [phone] ([phone]) or log in to [email or web address] for referrals to smoking cessation programs. ?? 366 Suicide & Crisis Lifeline is available 07/09 if you or someone you know needs to find a reason to keep living. By calling 838 you'll be connected to a skilled, trained counselor at a crisis center in your area. INPATIENT DISCHARGE INSTRUCTIONS SIGNATURE PAGE KAREN GAMEZ Location:[facility] Registration Date and Time:10/16/2022 13:06 EDT Primary Care Physician: Estephania Balderas NP, Attending Physician: Yadira Osorio DO, I KAREN GAMEZ, have received the above patient education materials/instructions and have verbalized understanding. If ambulance or transport services are being used I further acknowledge being given a choice of service. ?? If you need to contact me, please call me at this number: . Patient/Tooth Cutter Contact Wheel Name: Patient/Tooth Cutter Contact Wheel Signature: Relationship to Patient: Witness Name/Signature: Date: * Yadira Marmolejo RN: PERFORM Event Display: Patient Education Leaflets Authored Date: [id number] Adapting to : First Trimester ?? [address] Adapting to : First Trimester As your body adjusts during your first trimester of , you may have to change or limit yourdaily activities. You???ll need more rest. You may also need to use the energy you have more wisely. Your changing body Almost every part of your body is affected as you adapt to . The uterus and cervix will start to soften right away. You may not look very during the first 3 months. But you are likely to have some common signs of early : ??? Nausea ??? Fatigue ??? Frequent urination ??? Mood swings ??? Bloating of the belly ??? Constipation ??? Heartburn ??? Missed or light periods (first trimester bleeding) ??? Nipple or breast tenderness and breast swelling ?? It???s not too late to start good habits What matters most is protecting your baby from this moment on. If you smoke, drink alcohol, or use drugs, now is the time to stop. If you need help, talk with your healthcare provider: ??? Smoking increases the risk of stillbirth??or having a aol-cfces-dofolr baby. If you smoke, quit now. ??? Alcohol and drugs have been linked with miscarriage, defects, intellectual disability, and low weight. Don't drink alcohol or take drugs. ?? Tips to relieve nausea During , nausea can happen at any time of the day, but it may be worse in the morning. To help prevent nausea: ??? Eat small, light meals at frequent intervals. ??? Drink fluids often. ??? Get up slowly. Eat a few unsalted crackers before you get out of bed. ??? Avoid smells that bother you. ??? Avoid spicy and fatty foods. ??? Eat an ice pop??in your favorite flavor. ??? Get plenty of rest. ??? Ask your healthcare provider about taking susan or vitamin B6 for nausea and vomiting. ???Talk with your healthcare provider if you take vitamins that upset your stomach. ?? Work concerns The end of the first trimester is a good time to discuss working during with your employer. Follow your healthcare provider???s advice if your job needs you to stand for a long time, work with hazardous tools, or even sit at a desk all day. Your workspace, workload, or scheduled hours mayneed to be adjusted. Perhaps you can change body postures more often or take an extra break. ?? Advice for travel Talk to your healthcare provider first, but the second trimester may be the best time for any travel. You may be advised to avoid certain trips while you???re . Food and water can be concernsin developing countries. Travel by car is a good choice, as you can stop, get out, and stretch. Bring snacks and water along. Fasten the lap belt below your belly, low over your hips. Also be sure to wear the shoulder harness. ?? Intimacy Unless your healthcare provider tells you to, there's no reason to stop having sex while you???re . You or your partner may notice changes in desire. Desire may be less in the first trimesterdue to nausea and fatigue. In the second trimester, sex may be very enjoyable. The third trimester can be a challenge comfort-mckee. Try different positions and see what???s best for you both. ?? How daily issues affect your health Many things in your daily life impact your health. This can include transportation, money problems,housing, access to food, and child development assistant. If you can???t get to medical appointments, [...] who can help. ?? Last Reviewed Date: 2021 ?? 3061-1526 [employer]. All rights reserved. This information is not intended as a substitute for professional medical care. Always follow your healthcare professional's instructions. ?? Patient Care team information Care Team Personnel Name: Estephania Balderas NP Position: [facility] Outreach Member Role: PCP Address: Address: [address] [place], [place] - Name: Yadira Marmolejo RN Position: [facility] OB RN Member Role: OB RN Care Team Related Persons Name: CARROLL ESPINO Address: home [address] [place], [place] Name: MADAI RUIZ Address: home [address] [place], [place] Name: BRODERICK JUAREZ Address: home [address] [place], [place]
--- OUTSIDE RECORDS SUMMARY | 2023-01-22 06:46 | XMS_ITS | Continuity of Care Document ---
Author Name Unknown Organization [facility] Address [address] [place] [address]- Care Team Providers Care Laborer Livestock Name Role Phone Leland LEY, Beni Dacosta Primary Care Physician Encounter [facility] ACCT R [id number] Date(s): 06/09/19 - 07/09/19 [facility] [address] [place] [address]- [facility] Attending Physician: AdmMaxim [email or web address] Admitting Physician: Admtr ArRajani Referring Physician: Admtr, Ar8 Allergies, Adverse Reactions, [...] 3 Refills, Maintenance, 03/23/19 11:04:00 EST, Tablet, [facility] - , 1 tablet By [...]
--- OUTSIDE RECORDS SUMMARY | 2023-01-22 06:46 | XMS_ITS | Continuity of Care Document ---
Author Name Unknown Organization [facility] Address [address] [address]- Care Team Providers Care Heel Seat Fitter Machine Name Role Phone Andrey COLMENARES, Estephania Patrick Primary Care Physician Encounter [facility] Date(s): 11/25/22 - 01/10/23 [facility] [address] [address]- Attending Physician: Meenu Capone CNM Admitting Physician: Meenu Capone CNM Referring Physician: Ibis Luong CNM Allergies, Adverse Reactions, Alerts No Known Allergies Medications PNV Select oral tablet 1 tablet, By Mouth, Daily, Please prescribe PNVs that are covered by pt's insurance., # 30 tablet, 11 Refills, Maintenance, 09/18/22 13:55:00 EDT, [facility]/pharmacy #[id number], Partial fill upon patient request if the prescription is for a schedule II opioid . Start Date: 09/18/22 Stop Date: 09/13/23 Status: Ordered ProAir HFA 90 mcg/inh inhalation aerosol with adapter 2-4 puffs, Inhalation, Every 4 hours, PRN cough, wheeze, difficulty breathing, # 1 each, 6 Refills,Maintenance Start Date: 08/24/10 Status: Ordered Problem List Condition Confirmation Course Effective Dates [facility] atus Informant Abdominal pain Confirmed [...] S Outreach Member Role: PCP Address: Address: [address] [place] [address]- Care Team Related Persons Name: CARROLL ESPINO Address: [address] [place] [address] Name: MADAI RUIZ Address: home [address] [place] [address] Name: BRODERICK JUAREZ Address: home [address] [place] [address]
--- OUTSIDE RECORDS SUMMARY | 2023-01-22 06:46 | XMS_ITS | Continuity of Care Document ---
Author Name Unknown Organization [facility] ter Address [address] [place] [address]- Care Team Providers Care Aligning Checker Name Role Phone Andrey COLMENARES, Estephania Patrick Primary Care Physician Encounter [facility] [place] [facility] Date(s): 07/31/20 - 07/31/[address] [address] Discharge Disposition: A-D/C Home Attending Physician: Matilda Owusu MD Admitting Physician: Matilda Owusu MD Referring Physician: Matilda Owusu MD Allergies, Adverse Reactions, Alerts Substance Reaction [...] Maintenance, Solution Start Date: 08/24/10 Status: Ordered Ferrous Sulfate ER Refills 0, Maintenance, 07/31/20 7:16:00 EDT, Partial fill upon patient request if the prescriptionis for a schedule II opioid drug. Start Date: 07/31/20 Status: Ordered Flovent HFA 110 mcg/inh inhalation aerosol with adapter 2 puffs, Inhalation, 2 times a day, # 12 Gm, 3 Refills, Maintenance Start Date: 08/27/10 Status: Ordered MDI spacer MDI spacer, See Instructions, # 1 units, Refills 0, Tot. Refills 0, use as directed with albuterol and flovent inhaler, 01/18/09 14:41:27 Start Date: 01/18/09 Status: Ordered PNV By Mouth, Daily, 0 Refills, Maintenance, 07/31/20 7:15:00 EDT, Partial fill upon patient request ifthe prescription is for a schedule II opioid drug. Start Date: 07/31/20 Status: Ordered ProAir HFA 90 mcg/inh inhalation aerosol with adapter 2-4 puffs, Inhalation, Every 4 hours, PRN cough, wheeze, difficulty breathing, # 1 each, 6 Refills,Maintenance Start Date: 08/24/10 Status: Ordered Vistaril pamoate 50 mg oral capsule 2 capsule = 100 mg, By Mouth, Once, Take 2 tabs (100 mg) po for sleep/relaxation in , # 2 capsule, 0 Refills, Soft Stop, 07/31/20 9:28:00 EDT, Capsule, [id number], Partial fill upon patient request if the prescription is for a schedul... Start Date: 07/31/20 Status: Ordered Problem List Condition Effective Dates Status Health Status Inform ant Abdominal pain(Confirmed) Active Anxiety(Confirmed) Active Asthma(Confirmed) Active Depression(Confirmed) Active Vital Signs Most recent to oldest [Reference Range]: 1 2 Height 154 cm (07/31/20 7:01 AM) 154 cm (07/31/20 7:00 AM) Weight 84.1 kg (07/31/20 7:00 AM) Oxygen Saturation [94-100 %] 100 % (07/31/20 7:00 AM) Body Mass Index [18.5-24.99] 35.46 *>HHI* (07/31/20 7:00 AM) Blood Pressure [90-138/55-84 mm Hg] 119/ 69mm Hg (07/31/20 7:00 AM) Respiratory Rate [16-30 br/min] 20 br/mi n (07/31/20 7:00 AM) Temperature [96.8-100.4 DegF] 98.5 DegF (07/31/20 7:00 AM) Mode of Delivery (Oxygen) Room air (07/31/20 7:00 AM) Blood pressure sites Arm, right (07/31/20 7:00 AM) Temperature Route Oral (07/31/20 7:00 AM) Dry Weight 84.1 kg (07/31/20 7:00 AM) Weight Obtained Via Standing scale (07/31/20 7:00 AM) Dry Weight Obtained Via Standing scale (07/31/20 7:00 AM) Social History Social History Type Response Smoking Status Never (less than 100 in lifetime) entered on: 03/23/19 Sex
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
--- OUTSIDE RECORDS SUMMARY | 2023-01-22 06:46 | XMS_ITS | Continuity of Care Document ---
Author Name Unknown Organization [facility] Address [address] [place] [address]- Care Team Providers Care Coal Tower Operator Name Role Phone Leland LEY, Beni Dacosta Primary Care Physician [place] [facility] [place] [facility] [id number] Date(s): 01/04/20 - 02/08/20 [facility] [address] [place] [address]- Attending Physician: Mohan MANAGER EDUCATIONAL, Yahaira Combs Allergies, Adverse Reactions, Alerts Substance Reaction Severity [...] 3 Refills, Maintenance, 03/23/19 11:04:00 EST, Tablet, [facility] - , 1 tablet By [...]
--- OUTSIDE RECORDS SUMMARY | 2023-01-22 06:46 | XMS_ITS | Continuity of Care Document ---
Author Name Unknown Organization [facility] Address [address] [place] [address]- Care Team Providers Care College Archivist Name Role Phone Leland LEY, Beni Dacosta Primary Care Physician Encounter [facility] Date(s): 03/28/19 - 04/04/19 [facility] [address] [place] [address]- [facility] Attending Physician: Not on Staff, Attending MD [...] 3 Refills, Maintenance, 03/23/19 11:04:00 EST, Tablet, [facility] - , 1 tablet By [...]
--- OUTSIDE RECORDS SUMMARY | 2023-01-22 06:46 | XMS_ITS | Continuity of Care Document ---
Author Name Unknown Organization [facility] Address [address] [place] [address]- Care Team Providers Care Cs Associate Name Role Phone Leland LEY, Beni Dacosta Primary Care Physician [id number] Date(s): 03/23/19 - 03/30/19 [facility] [address] [address]- [facility] Attending Physician: Not on Staff, Attending MD Referring Physician: Imelda Moreira MD Allergies, Adverse Reactions, Alerts Substance Reaction [...] 3 Refills, Maintenance, 03/23/19 11:04:00 EST, Tablet, [facility] - , 1 tablet By Mouth [...] recent to oldest [Reference Range]: 1 Height 156 cm (03/23/19 9:21 AM) Weight 75.8 kg (03/23/19 9:21 AM) Body Mass Index [18.5-24.99] 31.15 *>HHI* (03/23/19 9:21 AM) Blood Pressure [90-138/55-84 mm Hg] 122/ 70mm Hg (03/23/19 9:21 AM) Blood pressure sites Arm, right (03/23/19 9:21 AM) Dry Weight 75.8 kg (03/23/19 9:21 AM) Weight Obtained Via Standing scale (03/23/19 9:21 AM) Dry Weight Obtained Via Standing scale (03/23/19 9:21 AM) Social History Social History Type Response Smoking Status Never (less than 100 in lifetime) entered on: 03/23/19 Sex
--- OUTSIDE RECORDS SUMMARY | 2023-01-22 06:46 | XMS_ITS | Continuity of Care Document ---
Author Name Unknown Organization [facility] Address [address] [place] [address], [address] [place] [address]- Care Team Providers Care Engraver Rubber Name Role Phone Andrey COMMERCIAL REAL ESTATE ATTORNEY, Estephania Patrick Primary Care Physician [place] [facility] [place]07[place]22 [place] 10/07/22 [facility] [address] [facility] [place] [address]- Allergies, Adverse Reactions, Alerts No Known Allergies Medications Acapella Airway Clearance Device Acapella Airway Clearance Device, See Instructions, # 1 each, Refills 0, Tot. Refills 0, Maintenance, Acapella Airway Clearance Device and Instruction, 08/27/10 10:49:00 Start Date: 08/27/10 Status: Ordered albuterol 0.083% inhalation solution See Instructions, 3 mL Neb Every 4 hours while awake until illness resolves, # 30 each, 1 Refills, Maintenance, Solution Start Date: 08/24/10 Status: Ordered doxylamine 25 mg oral tablet 0.5 tablet = 12.5 mg, By Mouth, Daily at bedtime, PRN Nausea & Vomiting, for 30 days, # 30 tablet, 0 Refills, Acute 10/18/22 13:55:00 EDT, 09/18/22 13:55:00 EDT, Tablet, [id number], Partial fill upon patient request if the prescription is for... Start Date: 09/18/22 Stop Date: 10/18/22 Status: Ordered Ferrous Sulfate ER Refills 0, [...] opioid drug. Start Date: 07/31/20 Status: Ordered PNV Select oral tablet 1 tablet, By Mouth, Daily, Please prescribe PNVs that are covered by pt's insurance., # 30 tablet, 11 Refills, Maintenance, 09/18/22 13:55:00 EDT, [id number], Partial fill upon patient request if the prescription is for a schedule II opioid dr... Start Date: 09/18/22 Stop Date: 09/13/23 Status: Ordered ProAir HFA 90 mcg/inh inhalation aerosol with adapter 2-4 puffs, Inhalation, Every 4 hours, PRN cough, wheeze, difficulty breathing, # 1 each, 6 Refills,Maintenance Start Date: 08/24/10 Status: Ordered pyridoxine 25 mg oral tablet 1 tablet = 25 mg, By Mouth, 3 times a day, PRN Nausea & Vomiting, for 30 days, # 90 tablet, 0 Refills, Acute 10/18/22 13:55:00 EDT, 09/18/22 13:55:00 EDT, Tablet, [id number], Partial fillupon patient request if the prescription is for a sched... Start Date: 09/18/22 Stop Date: 10/18/22 Status: Ordered Vistaril pamoate 50 mg oral capsule 2 capsule = 100 mg, By Mouth, Once, Take 2 tabs (100 mg) po for sleep/relaxation in , # 2 capsule, 0 Refills, Soft Stop, 07/31/20 9:28:00 EDT, Capsule, [id number], Partial fill upon patient request if the prescription is for a schedul... Start Date: 07/31/20 Status: Ordered Problem List Condition Confirmation Course Effective Dates Status Health St [facility] Informant Abdominal pain Confirmed Active Anxiety Confirmed Active Asthma Confirmed Active Depression Confirmed Active Social History Social History Type Response Smoking Status Never (less than 100 in lifetime) entered on: 03/23/19 Sex Patient Care team information Care Team Personnel Name: Estephania Balderas NP Position: [facility] Outreach Member Role: PCP Address: Address: [address] [place] [address]- Care Team Related Persons Name: CARROLL ESPINO Address: home [address] [place] [address] Name: MADAI RUIZ Address: [address] [place] [address] Name: BRODERICK JUAREZ Address: [place] [address] [place] [address]
== END 2023-01-22 06:44 | disposition left against medical advice (07) ==
LOC: HO.ED 01-22 06:44
PROVIDERS: PCP Nurse Practitioner Primary Care
DX: M54.50 Low back pain, unspecified (principal)

== ENCOUNTER 2024-03-28 09:52 | Outpatient (REF) | payer MEDICAID, SELFPAY ==
[2024-03-29 10:15] LABS: Adenovirus PCR Not Detected (Not Detect.); Bordetella parapertussis PCR Not Detected (Not Detect.); Bordetella pertussis PCR Not Detected (Not Detect.); Chlamydia pneumoniae PCR Not Detected (Not Detect.); Coronavirus 229E PCR Not Detected (Not Detect.); Coronavirus HKU1 PCR Not Detected (Not Detect.); Coronavirus NL63 PCR Not Detected (Not Detect.); Coronavirus OC43 PCR Not Detected (Not Detect.); Human metapneumovirus PCR Not Detected (Not Detect.); Influenza A PCR Not Detected (Not Detect.); Influenza B PCR Not Detected (Not Detect.); Mycoplasma pneumoniae PCR Not Detected (Not Detect.); Parainfluenza 1 PCR Not Detected (Not Detect.); Parainfluenza 2 PCR Not Detected (Not Detect.); Parainfluenza 3 PCR Not Detected (Not Detect.); Parainfluenza 4 PCR Not Detected (Not Detect.); RSV PCR Not Detected (Not Detect.); Rhino/Enterovirus PCR Not Detected (Not Detect.)
[2024-03-29 11:23] LABS: SARS-CoV-2 PCR Not Detected (Not Detect.)
== END 2024-03-28 09:53 | disposition home or self-care (01) ==
LOC: HO.HHCX 09:52
PROVIDERS: Visit Provider Emergency Medicine
DX: J45.21 Mild intermittent asthma with (acute) exacerbation (principal)
CPT/HCPCS: 71046; 87633

== ENCOUNTER → 2024-03-28 09:53 | Outpatient (BNV) | payer MEDICAID, SELFPAY | PROVIDERS: Visit Provider Radiology Diagnostic Radiology | DX: R05.9 Cough, unspecified (principal); R06.2 Wheezing | CPT/HCPCS: 71046 ==